=== PATIENT | female | born 1940 | race Caucasian/White ===

== ENCOUNTER → 2017-11-08 08:09 | Outpatient (CLI) | payer MEDICARE, SELFPAY ==
[2017-11-08 08:41] LABS: Hemoglobin A1C 6.1 % (0.0-7.0)
[2017-11-08 09:38] LABS: Alanine Aminotransferase 42 U/L (12-78); Albumin Level 3.9 gm/dL (3.4-5.0); Albumin/Globulin Ratio 1.1 (1.1-1.8); Alkaline Phosphatase 134 U/L (46-116); Anion Gap 7.3 mEq/L (5-15); Aspartate Amino Transferase 36 U/L (15-37); Bilirubin,Total 0.6 mg/dL (0.2-1.0); Blood Urea Nitrogen 9 mg/dL (7-18); Calcium 10.1 mg/dL (8.5-10.1); Carbon Dioxide 32 mmol/L (21.0-32.0); Chloride 108 mmol/L (98-107); Chol/HDL Ratio 3.7 (1-3.5); Cholesterol 181 mg/dL (140-200); Creatinine,Serum 0.69 mg/dL (0.55-1.02); Estimated Glomerular Filt Rate 83 ml/min (>60); GFR (African American) 100 ML/MIN (>60); Globulin 3.6 gm/dl (1.3-3.2); Glucose 124 mg/dL (74-106); HDL Cholesterol 49 mg/dL (29-89); LDL Cholesterol 70 mg/dL (0-130); Potassium 4.3 mmoL/L (3.5-5.1); Sodium 143 mmol/L (136-145); Total Protein,Serum 7.5 gm/dL (6.4-8.2); Triglycerides 309 mg/dL (30-200); VLDL Cholesterol 62 mg/dL (0-40)
== END ==
PROVIDERS: Visit Provider Nurse Practitioner Family
DX: Z00.00 Encounter for general adult medical examination without abnormal findings (principal); E11.9 Type 2 diabetes mellitus without complications; I10 Essential (primary) hypertension; R30.0 Dysuria; E78.5 Hyperlipidemia, unspecified
CPT/HCPCS: 36415; 80053; 80061; 83036; 87086

== ENCOUNTER → 2017-11-25 14:43 | Outpatient (CLI) | payer MEDICARE, SELFPAY ==
[2017-11-25 16:08] LABS: Anion Gap 9.3 mEq/L (5-15); Blood Urea Nitrogen 13 mg/dL (7-18); Calcium 9.6 mg/dL (8.5-10.1); Carbon Dioxide 29 mmol/L (21.0-32.0); Chloride 107 mmol/L (98-107); Creatinine,Serum 0.89 mg/dL (0.55-1.02); Estimated Glomerular Filt Rate 62 ml/min (>60); GFR (African American) 75 ML/MIN (>60); Glucose 98 mg/dL (74-106); Potassium 4.3 mmoL/L (3.5-5.1); Sodium 141 mmol/L (136-145)
== END ==
PROVIDERS: Visit Provider Nurse Practitioner Family
DX: I10 Essential (primary) hypertension (principal)
CPT/HCPCS: 36415; 80048

== ENCOUNTER → 2018-03-03 08:19 | Outpatient (CLI) | payer MEDICARE, SELFPAY ==
[2018-03-03 11:32] LABS: Alanine Aminotransferase 33 U/L (12-78); Albumin Level 3.7 gm/dL (3.4-5.0); Albumin/Globulin Ratio 1.1 (1.1-1.8); Alkaline Phosphatase 108 U/L (46-116); Anion Gap 13.4 mEq/L (5-15); Aspartate Amino Transferase 36 U/L (15-37); Bilirubin,Total 0.4 mg/dL (0.2-1.0); Blood Urea Nitrogen 11 mg/dL (7-18); Calcium 9.7 mg/dL (8.5-10.1); Carbon Dioxide 27 mmol/L (21.0-32.0); Chloride 106 mmol/L (98-107); Chol/HDL Ratio 3.1 (1-3.5); Cholesterol 151 mg/dL (140-200); Creatinine,Serum 0.63 mg/dL (0.55-1.02); Estimated Glomerular Filt Rate 92 ml/min (>60); GFR (African American) 111 ML/MIN (>60); Globulin 3.3 gm/dl (1.3-3.2); Glucose 122 mg/dL (74-106); HDL Cholesterol 49 mg/dL (29-89); LDL Cholesterol 64 mg/dL (0-130); Potassium 4.4 mmoL/L (3.5-5.1); Sodium 142 mmol/L (136-145); Triglycerides 188 mg/dL (30-200); VLDL Cholesterol 38 mg/dL (0-40)
[2018-03-03 11:42] LABS: Hemoglobin A1C 6.3 % (0.0-7.0)
== END ==
PROVIDERS: Visit Provider Nurse Practitioner Family
DX: Z00.00 Encounter for general adult medical examination without abnormal findings (principal); E11.9 Type 2 diabetes mellitus without complications; E78.5 Hyperlipidemia, unspecified
CPT/HCPCS: 36415; 80053; 80061; 83036

== ENCOUNTER → 2018-09-22 07:36 | Outpatient (CLI) | payer MEDICARE, SELFPAY ==
[2018-09-22 08:50] LABS: Alanine Aminotransferase 36 U/L (12-78); Albumin Level 3.5 gm/dL (3.4-5.0); Albumin/Globulin Ratio 1.1 (1.1-1.8); Alkaline Phosphatase 94 U/L (46-116); Anion Gap 11.2 mEq/L (5-15); Aspartate Amino Transferase 32 U/L (15-37); Bilirubin,Total 0.5 mg/dL (0.2-1.0); Blood Urea Nitrogen 12 mg/dL (7-18); Calcium 10.3 mg/dL (8.5-10.1); Carbon Dioxide 29 mmol/L (21.0-32.0); Chloride 106 mmol/L (98-107); Chol/HDL Ratio 3.2 (1-3.5); Cholesterol 177 mg/dL (140-200); Creatinine,Serum 0.78 mg/dL (0.55-1.02); Estimated Glomerular Filt Rate 72 ml/min (>60); GFR (African American) 87 ML/MIN (>60); Globulin 3.2 gm/dl (1.3-3.2); Glucose 126 mg/dL (74-106); HDL Cholesterol 55 mg/dL (29-89); LDL Cholesterol 73 mg/dL (0-130); Potassium 4.2 mmoL/L (3.5-5.1); Sodium 142 mmol/L (136-145); Total Protein,Serum 6.7 gm/dL (6.4-8.2); Triglycerides 243 mg/dL (30-200); VLDL Cholesterol 49 mg/dL (0-40)
[2018-09-22 10:22] LABS: Hemoglobin A1C 6.6 % (0.0-7.0)
== END ==
PROVIDERS: Visit Provider Nurse Practitioner Family
DX: E11.9 Type 2 diabetes mellitus without complications (principal); E78.5 Hyperlipidemia, unspecified; Z00.00 Encounter for general adult medical examination without abnormal findings; R25.2 Cramp and spasm
CPT/HCPCS: 36415; 80053; 80061; 83036; 83735

== ENCOUNTER → 2018-12-29 14:47 | Outpatient (CLI) | payer MEDICARE, SELFPAY ==
--- NOTE | 2018-12-29 14:53 | XR_ITS ---
PROCEDURE: XR KNEE LT 3V CLINICAL INDICATION: LT KNEE PAIN Left knee pain following injury COMPARISON: No exams were available for comparison FINDINGS: No fracture or dislocation. No lytic or blastic change. There is normal mineralization. There are mild osteoarthritic changes of the medial compartment and patellofemoral joint Other findings:None. IMPRESSION: No acute fracture, mild osteoarthritis Dictated by: Isak Bañuelos MD 12/29/2018 16:31 Electronically signed by Isak Bañuelos MD in [place] 12/29/2018 16:31
== END ==
PROVIDERS: PCP Nurse Practitioner Family; Visit Provider Internal Medicine Adolescent Medicine
DX: M25.562 Pain in left knee (principal)
CPT/HCPCS: 73562

== ENCOUNTER → 2019-02-15 11:13 | Outpatient (CLI) | payer MEDICARE, SELFPAY ==
[2019-02-15 11:43] LABS: Alanine Aminotransferase 71 U/L (12-78); Albumin Level 3.9 gm/dL (3.4-5.0); Albumin/Globulin Ratio 1.3 (1.1-1.8); Alkaline Phosphatase 53 U/L (46-116); Anion Gap 12.2 mEq/L (5-15); Aspartate Amino Transferase 4 U/L (15-37); Bilirubin,Total 0.6 mg/dL (0.2-1.0); Blood Urea Nitrogen 9 mg/dL (7-18); Carbon Dioxide 29 mmol/L (21.0-32.0); Chloride 104 mmol/L (98-107); Chol/HDL Ratio 3.4 (1-3.5); Cholesterol 164 mg/dL (140-200); Creatinine,Serum 0.75 mg/dL (0.55-1.02); Estimated Glomerular Filt Rate 75 ml/min (>60); GFR (African American) 91 ML/MIN (>60); Globulin 2.9 gm/dl (1.3-3.2); Glucose 136 mg/dL (74-106); HDL Cholesterol 48 mg/dL (29-89); LDL Cholesterol 77 mg/dL (0-130); Potassium 4.2 mmoL/L (3.5-5.1); Sodium 141 mmol/L (136-145); Total Protein,Serum 6.8 gm/dL (6.4-8.2); Triglycerides 194 mg/dL (30-200); VLDL Cholesterol 39 mg/dL (0-40)
[2019-02-15 12:43] LABS: Hemoglobin A1C 6.6 % (0.0-7.0)
== END ==
PROVIDERS: Visit Provider Nurse Practitioner Family
DX: E11.9 Type 2 diabetes mellitus without complications (principal); E78.5 Hyperlipidemia, unspecified; Z00.00 Encounter for general adult medical examination without abnormal findings
CPT/HCPCS: 36415; 80053; 80061; 83036

== ENCOUNTER → 2019-06-06 10:57 | Outpatient (CLI) | payer MEDICARE, SELFPAY ==
[2019-06-06 12:03] LABS: Hemoglobin A1C 7.2 % (0.0-7.0)
[2019-06-06 14:36] LABS: Alanine Aminotransferase 57 U/L (9-52); Albumin Level 3.5 g/dL (3.4-5.0); Alkaline Phosphatase 111 U/L (46-116); Anion Gap 14.7 mEq/L (5-15); Aspartate Amino Transferase 82 U/L (15-37); Bilirubin,Total 0.5 mg/dL (0.2-1.0); Blood Urea Nitrogen 10 mg/dL (7-18); Calcium 9.8 mg/dL (8.5-10.1); Carbon Dioxide 27 mmol/L (21.0-32.0); Chloride 107 mmol/L (98-107); Creatinine,Serum 0.67 mg/dL (0.55-1.02); Estimated Glomerular Filt Rate 85 ml/min (>60); GFR (African American) 103 ML/MIN (>60); Globulin 3.4 gm/dl (1.3-3.2); Glucose 139 mg/dL (74-106); Potassium 4.7 mmoL/L (3.5-5.1); Sodium 144 mmol/L (137-145); Total Protein,Serum 6.9 g/dL (6.4-8.2)
[2019-06-06 20:54] LABS: Chol/HDL Ratio 3.5 (1-3.5); Cholesterol 167 mg/dL (140-200); HDL Cholesterol 48 mg/dL (29-89); LDL Cholesterol 83 mg/dL (0-130); Triglycerides 178 mg/dL (30-200); VLDL Cholesterol 36 mg/dL (0-40)
== END ==
PROVIDERS: Visit Provider Nurse Practitioner Family
DX: Z00.00 Encounter for general adult medical examination without abnormal findings (principal); E78.5 Hyperlipidemia, unspecified; E11.9 Type 2 diabetes mellitus without complications
CPT/HCPCS: 36415; 80053; 80061; 83036

== ENCOUNTER → 2019-09-05 10:34 | Outpatient (CLI) | payer MEDICARE, SELFPAY ==
[2019-09-05 12:14] LABS: Alanine Aminotransferase 55 U/L (12-78); Albumin Level 4.3 g/dl (3.5-5.0); Albumin/Globulin Ratio 1.4 (1.1-1.8); Alkaline Phosphatase 129 U/L (38-126); Anion Gap 8.5 mEq/L (5-15); Aspartate Amino Transferase 110 U/L (14-36); Bilirubin,Total 0.5 mg/dl (0.2-1.3); Blood Urea Nitrogen 9 mg/dl (7-17); Calcium 10.7 mg/dl (8.4-10.2); Carbon Dioxide 29 mmol/L (22.0-30.0); Chloride 104 mmol/L (98-107); Chol/HDL Ratio 2.8 (1-3.5); Cholesterol 144 mg/dl (140-200); Estimated Glomerular Filt Rate 97 ml/min (>60); GFR (African American) 117 ML/MIN (>60); Glucose 154 mg/dl (74-100); HDL Cholesterol 52 mg/dl (40-60); Potassium 4.5 mmoL/L (3.5-5.1); Sodium 137 mmol/L (136-145); Total Protein,Serum 7.3 g/dl (6.3-8.2); Triglycerides 217 mg/dl (30-150); VLDL Cholesterol 43 mg/dL (0-40)
[2019-09-05 12:25] LABS: Direct LDL Cholesterol 85.79 mg/dL (100-129)
== END ==
PROVIDERS: Visit Provider Nurse Practitioner Family
DX: E78.2 Mixed hyperlipidemia (principal); I10 Essential (primary) hypertension; F41.8 Other specified anxiety disorders; E11.9 Type 2 diabetes mellitus without complications
CPT/HCPCS: 36415; 80053; 80061; 83036

== ENCOUNTER → 2019-09-13 07:47 | Outpatient (CLI) | payer MEDICARE, SELFPAY ==
--- NOTE | 2019-09-13 07:52 | US_ITS ---
PROCEDURE: US LIVER CLINICAL INDICATION: ELEVATED LIVER ENZYMES COMPARISON: No exams were available for comparison FINDINGS: PANCREAS: Unremarkable. No obvious mass or abnormal fluid collection. No ductal dilatation LIVER: No focal liver lesions demonstrated. Homogeneous echogenicity. No intrahepatic biliary ductal dilatation evident. There is appropriate direction of blood flow within a non dilated portal vein. There is some mild fatty liver infiltration RIGHT KIDNEY: Unremarkable. Normal size and echogenicity. No hydronephrosis GALLBLADDER: Prior cholecystectomy. Common bile duct at mm. IMPRESSION: Prior cholecystectomy with mild fatty liver otherwise negative right upper quadrant ultrasound. Dictated by: Isak Bañuelos MD 09/13/2019 11:39 Electronically signed by Isak Bañuelos MD in [place] 09/13/2019 11:39
== END ==
PROVIDERS: PCP Nurse Practitioner Family; Visit Provider Nurse Practitioner Family
DX: R74.8 Abnormal levels of other serum enzymes (principal)
CPT/HCPCS: 76705

== ENCOUNTER → 2019-10-03 08:41 | Outpatient (CLI) | payer MEDICARE, SELFPAY ==
[2019-10-03 09:56] LABS: Chloride 103 mmol/L (98-107); Potassium 3.9 mmoL/L (3.5-5.1); Sodium 140 mmol/L (136-145)
[2019-10-03 09:59] LABS: Alanine Aminotransferase 46 U/L (12-78); Albumin Level 3.9 g/dl (3.5-5.0); Albumin/Globulin Ratio 1.3 (1.1-1.8); Alkaline Phosphatase 128 U/L (38-126); Anion Gap 11.9 mEq/L (5-15); Aspartate Amino Transferase 102 U/L (14-36); Bilirubin,Total 0.7 mg/dl (0.2-1.3); Blood Urea Nitrogen 9 mg/dl (7-17); Calcium 9.9 mg/dl (8.4-10.2); Carbon Dioxide 29 mmol/L (22.0-30.0); Estimated Glomerular Filt Rate 97 ml/min (>60); GFR (African American) 117 ML/MIN (>60); Globulin 2.9 g/dL (1.3-3.2); Glucose 175 mg/dl (74-100); Total Protein,Serum 6.8 g/dl (6.3-8.2)
[2019-10-04 05:12] LABS: Hep A Ab, IgM Negative (Negative); Hepatitis B Core Antibody IgM Negative (Negative); Hepatitis B Surface Antigen Negative (Negative)
[2019-10-04 09:41] LABS: Hepatitis C Antibody <0.1 s/co ratio (0.0-0.9)
== END ==
PROVIDERS: Visit Provider Internal Medicine Adolescent Medicine
DX: R74.8 Abnormal levels of other serum enzymes (principal); E83.52 Hypercalcemia; K75.89 Other specified inflammatory liver diseases
CPT/HCPCS: 36415; 80053; 80074

== ENCOUNTER → 2020-03-06 08:03 | Outpatient (CLI) | payer MEDICARE, SELFPAY ==
[2020-03-06 09:08] LABS: Chloride 102 mmol/L (98-107); Potassium 4.2 mmoL/L (3.5-5.1); Sodium 139 mmol/L (136-145)
[2020-03-06 09:11] LABS: Alanine Aminotransferase 36 U/L (12-78); Albumin Level 4.2 g/dl (3.5-5.0); Albumin/Globulin Ratio 1.4 (1.1-1.8); Alkaline Phosphatase 126 U/L (38-126); Anion Gap 14.2 mEq/L (5-15); Aspartate Amino Transferase 72 U/L (14-36); Bilirubin,Total 0.7 mg/dl (0.2-1.3); Blood Urea Nitrogen 10 mg/dl (7-17); Carbon Dioxide 27 mmol/L (22.0-30.0); Cholesterol 147 mg/dl (140-200); Estimated Glomerular Filt Rate 81 ml/min (>60); GFR (African American) 98 ML/MIN (>60); Globulin 3.1 g/dL (1.3-3.2); Total Protein,Serum 7.3 g/dl (6.3-8.2); Triglycerides 244 mg/dl (30-150); VLDL Cholesterol 49 mg/dL (0-40)
[2020-03-06 09:12] LABS: Calcium 10.4 mg/dl (8.4-10.2); Chol/HDL Ratio 3.3 (1-3.5); Glucose 175 mg/dl (74-100); HDL Cholesterol 45 mg/dl (40-60)
[2020-03-06 09:23] LABS: Direct LDL Cholesterol 72.77 mg/dL (100-129)
[2020-03-06 09:56] LABS: Hemoglobin A1C 7.4 % (4.0-6.0)
== END ==
PROVIDERS: Visit Provider Nurse Practitioner Family
DX: E11.9 Type 2 diabetes mellitus without complications (principal); E78.5 Hyperlipidemia, unspecified; I10 Essential (primary) hypertension
CPT/HCPCS: 36415; 80053; 80061; 83036

== ENCOUNTER → 2020-06-19 09:11 | Outpatient (CLI) | payer MEDICARE, SELFPAY ==
[2020-06-19 09:59] LABS: Hemoglobin A1C 8.2 % (4.0-6.0)
[2020-06-19 10:11] LABS: Chloride 103 mmol/L (98-107); Sodium 140 mmol/L (136-145)
[2020-06-19 10:12] LABS: Potassium 4.5 mmoL/L (3.5-5.1)
[2020-06-19 10:14] LABS: Alanine Aminotransferase 38 U/L (12-78); Albumin Level 4.6 g/dl (3.5-5.0); Albumin/Globulin Ratio 1.3 (1.1-1.8); Alkaline Phosphatase 137 U/L (38-126); Anion Gap 11.5 mEq/L (5-15); Aspartate Amino Transferase 92 U/L (14-36); Bilirubin,Total 0.7 mg/dl (0.2-1.3); Blood Urea Nitrogen 8 mg/dl (7-17); Carbon Dioxide 30 mmol/L (22.0-30.0); Cholesterol 155 mg/dl (140-200); Estimated Glomerular Filt Rate 97 ml/min (>60); GFR (African American) 117 ML/MIN (>60); Globulin 3.6 g/dL (1.3-3.2); Total Protein,Serum 8.2 g/dl (6.3-8.2); Triglycerides 251 mg/dl (30-150); VLDL Cholesterol 50 mg/dL (0-40)
[2020-06-19 10:15] LABS: Calcium 10.7 mg/dl (8.4-10.2); Chol/HDL Ratio 3.4 (1-3.5); Glucose 197 mg/dl (74-100); HDL Cholesterol 46 mg/dl (40-60)
[2020-06-19 10:26] LABS: Direct LDL Cholesterol 66.29 mg/dL (100-129)
== END ==
PROVIDERS: Visit Provider Nurse Practitioner Family
DX: Z00.00 Encounter for general adult medical examination without abnormal findings (principal); E11.9 Type 2 diabetes mellitus without complications; E78.5 Hyperlipidemia, unspecified
CPT/HCPCS: 36415; 80053; 80061; 83036

== ENCOUNTER → 2020-10-29 08:53 | Outpatient (CLI) | payer MEDICARE, SELFPAY ==
[2020-10-29 10:23] LABS: Hemoglobin A1C 6.9 % (4.0-6.0)
[2020-10-29 10:37] LABS: Chloride 107 mmol/L (98-107)
[2020-10-29 10:38] LABS: Potassium 4.1 mmoL/L (3.5-5.1); Sodium 143 mmol/L (136-145)
[2020-10-29 10:40] LABS: Alanine Aminotransferase 29 U/L (12-78); Albumin Level 4.3 g/dl (3.5-5.0); Albumin/Globulin Ratio 1.4 (1.1-1.8); Alkaline Phosphatase 124 U/L (38-126); Anion Gap 14.1 mEq/L (5-15); Aspartate Amino Transferase 65 U/L (14-36); Bilirubin,Total 0.6 mg/dl (0.2-1.3); Blood Urea Nitrogen 7 mg/dl (7-17); Carbon Dioxide 26 mmol/L (22.0-30.0); Cholesterol 139 mg/dl (140-200); Estimated Glomerular Filt Rate 96 ml/min (>60); GFR (African American) 117 ML/MIN (>60); Globulin 3.1 g/dL (1.3-3.2); Glucose 148 mg/dl (74-100); Total Protein,Serum 7.4 g/dl (6.3-8.2); Triglycerides 202 mg/dl (30-150); VLDL Cholesterol 40 mg/dL (0-40)
[2020-10-29 10:41] LABS: Chol/HDL Ratio 3.1 (1-3.5); HDL Cholesterol 45 mg/dl (40-60)
[2020-10-29 10:52] LABS: Direct LDL Cholesterol 63.57 mg/dL (100-129)
== END ==
PROVIDERS: Visit Provider Nurse Practitioner Family
DX: Z00.00 Encounter for general adult medical examination without abnormal findings (principal); E78.5 Hyperlipidemia, unspecified; E11.9 Type 2 diabetes mellitus without complications; Z79.84 Long term (current) use of oral hypoglycemic drugs
CPT/HCPCS: 36415; 80053; 80061; 83036

== ENCOUNTER → 2021-01-23 10:00 | Outpatient (CLI) | payer MEDICARE, SELFPAY ==
--- NOTE | 2021-01-23 10:10 | XR_ITS ---
PROCEDURE: XR CHEST 2V CLINICAL HISTORY: SOB COMPARISON: No exams were available for comparison FINDINGS: Borderline cardiomegaly without failure. Lungs are clear. Mild kyphosis of the thoracic spine with degenerative changes. IMPRESSION: No acute findings. Dictated by: Isak Bañuelos MD 01/23/2021 12:30 Isak Bañuelos MD in [place] 01/23/2021 12:30
[2021-01-23 11:28] LABS: Hemoglobin A1C 6.8 % (4.0-6.0)
[2021-01-23 11:29] LABS: Chloride 104 mmol/L (98-107)
[2021-01-23 11:30] LABS: Potassium 4.4 mmoL/L (3.5-5.1); Sodium 143 mmol/L (136-145)
[2021-01-23 11:32] LABS: Alanine Aminotransferase 28 U/L (12-78); Alkaline Phosphatase 118 U/L (38-126); Anion Gap 15.4 mEq/L (5-15); Aspartate Amino Transferase 62 U/L (14-36); Bilirubin,Total 0.4 mg/dl (0.2-1.3); Blood Urea Nitrogen 9 mg/dl (7-17); Carbon Dioxide 28 mmol/L (22.0-30.0); Cholesterol 138 mg/dl (140-200); Estimated Glomerular Filt Rate 119 ml/min (>60); GFR (African American) 144 ML/MIN (>60); Triglycerides 200 mg/dl (30-150); VLDL Cholesterol 40 mg/dL (0-40)
[2021-01-23 11:33] LABS: Albumin Level 4.4 g/dl (3.5-5.0); Albumin/Globulin Ratio 1.3 (1.1-1.8); Calcium 10.5 mg/dl (8.4-10.2); Chol/HDL Ratio 3.1 (1-3.5); Globulin 3.5 g/dL (1.3-3.2); Glucose 153 mg/dl (74-100); HDL Cholesterol 44 mg/dl (40-60); Magnesium 1.7 mg/dl (1.6-2.3); Total Protein,Serum 7.9 g/dl (6.3-8.2)
== END ==
PROVIDERS: PCP Internal Medicine Adolescent Medicine; Visit Provider Nurse Practitioner Family
DX: R06.02 Shortness of breath (principal); Z00.00 Encounter for general adult medical examination without abnormal findings; E11.9 Type 2 diabetes mellitus without complications; E78.5 Hyperlipidemia, unspecified; G25.81 Restless legs syndrome
CPT/HCPCS: 36415; 71046; 80053; 80061; 83036; 83735

== ENCOUNTER → 2021-08-04 09:22 | Outpatient (CLI) | payer MEDICARE, SELFPAY ==
[2021-08-04 10:19] LABS: Chloride 106 mmol/L (98-107); Sodium 142 mmol/L (136-145)
[2021-08-04 10:20] LABS: Potassium 4.6 mmoL/L (3.5-5.1)
[2021-08-04 10:21] LABS: Hemoglobin A1C 6.7 % (4.0-6.0)
[2021-08-04 10:22] LABS: Alanine Aminotransferase 23 U/L (12-78); Albumin Level 4.1 g/dl (3.5-5.0); Albumin/Globulin Ratio 1.5 (1.1-1.8); Alkaline Phosphatase 102 U/L (38-126); Anion Gap 10.6 mEq/L (5-15); Aspartate Amino Transferase 49 U/L (14-36); Bilirubin,Total 0.6 mg/dl (0.2-1.3); Blood Urea Nitrogen 11 mg/dl (7-17); Carbon Dioxide 30 mmol/L (22.0-30.0); Cholesterol 139 mg/dl (140-200); Estimated Glomerular Filt Rate 81 ml/min (>60); GFR (African American) 98 ML/MIN (>60); Globulin 2.8 g/dL (1.3-3.2); Total Protein,Serum 6.9 g/dl (6.3-8.2); Triglycerides 175 mg/dl (30-150); VLDL Cholesterol 35 mg/dL (0-40)
[2021-08-04 10:23] LABS: Calcium 9.6 mg/dl (8.4-10.2); Chol/HDL Ratio 2.6 (1-3.5); Glucose 124 mg/dl (74-100); HDL Cholesterol 53 mg/dl (40-60)
[2021-08-04 10:34] LABS: Direct LDL Cholesterol 64.48 mg/dL (100-129)
== END ==
PROVIDERS: Visit Provider Nurse Practitioner Family
DX: Z00.00 Encounter for general adult medical examination without abnormal findings (principal); E11.9 Type 2 diabetes mellitus without complications; E78.5 Hyperlipidemia, unspecified
CPT/HCPCS: 36415; 80053; 80061; 83036

== ENCOUNTER → 2022-08-05 11:13 | Outpatient (CLI) | payer MEDICARE, SELFPAY ==
[2022-08-05 11:20] LABS: Microscopic, Urine URINE MICROSCOPIC (MICROSCOPIC)
[2022-08-05 11:48] LABS: Appearance,Urine SL CLOUDY (Clear); Bilirubin,Urine Negative (Negative); Blood, Urine TRACE-I (Negative); Color,Urine YELLOW (Yellow); Glucose,Urine (UA) Negative (Negative); Ketones,Urine Negative (Negative); Leukocyte Esterase,Urine 1+ (Negative); Nitrate,Urine POSITIVE (Negative); Protein,Urine Negative (Negative); Urobilinogen,Urine 0.2 EU/dl (0.2)
[2022-08-05 11:54] LABS: Basophils # 0.1 K/mm3 (0-0.2); Basophils % 0.8 % (0.1-2.0); Eosinophils # 0.1 K/mm3 (0.0-0.4); Eosinophils % 1.4 % (0.1-12.0); Hematocrit 42.7 % (37.0-47.0); Hemoglobin 13.2 g/dL (12.2-16.2); Lymphocytes # 2.1 K/mm3 (0.7-4.5); Lymphocytes % 31.1 % (10-50); Mean Corpuscular HGB Conc 30.9 g/dL (31.8-35.4); Mean Corpuscular Hemoglobin 28.2 pg (27.0-31.2); Mean Corpuscular Volume 91.2 fl (81-99); Monocytes # 0.3 K/mm3 (0.1-1.0); Neutrophils # 4.1 K/mm3 (1.8-7.8); Neutrophils % 61.7 % (37.0-80.0); Platelet Count 150 K/mm3 (142-424); Red Blood Count 4.68 M/mm3 (4.20-5.40); Red Cell Distribution Width 14.6 % (11.5-17.5); White Blood Count 6.6 K/mm3 (4.8-10.8)
[2022-08-05 11:55] LABS: Creatinine,Urine Random 98 mg/dL (Not Estab.)
[2022-08-05 12:00] LABS: Bacteria,Urine 4+ /lpf; Squamous Epithelial Cell,Urine Occasional #/hpf (0-5)
[2022-08-05 12:44] LABS: Albumin Level 4.6 g/dl (3.5-5.0); Anion Gap 5.3 mEq/L (5-15); Blood Urea Nitrogen 8 mg/dl (7-17); Calcium 10.2 mg/dl (8.4-10.2); Carbon Dioxide 32 mmol/L (22.0-30.0); Chloride 103 mmol/L (98-107); Estimated Glomerular Filt Rate 96 ml/min (>60); GFR (African American) 116 ML/MIN (>60); Glucose 123 mg/dl (74-100); Potassium 4.3 mmoL/L (3.5-5.1); Sodium 136 mmol/L (136-145)
[2022-08-05 12:56] LABS: Intact Parathyroid Hormone 191.2 pg/mL (7.5-53.5)
[2022-08-05 13:03] LABS: 25-OH Vitamin D, Total 15.6 ng/mL (30-100)
== END ==
PROVIDERS: PCP Nurse Practitioner Family; Visit Provider Nurse Practitioner
DX: E83.52 Hypercalcemia (principal); B96.29 Other Escherichia coli [E. coli] as the cause of diseases classified elsewhere; R82.90 Unspecified abnormal findings in urine
CPT/HCPCS: 36415; 80069; 81001; 82306; 82570; 83970; 84155; 85025; 87086; 87088; 87186

== ENCOUNTER → 2022-08-10 10:57 | Outpatient (POV) | payer MEDICARE, SELFPAY | PROVIDERS: Visit Provider Nurse Practitioner | DX: Z00.00 Encounter for general adult medical examination without abnormal findings (principal) ==

== ENCOUNTER → 2022-08-10 11:21 | Outpatient (CLI) | payer MEDICARE, SELFPAY ==
[2022-08-16 19:25] LABS: 1,25 Dihydroxy Vitamin D 68 pg/mL (.); 1,25-Dihydroxy, Vitamin D-2 10 pg/mL (.); 1,25-Dihydroxy, Vitamin D-3 58 pg/mL (.)
[2022-08-26 22:53] LABS: PTH Related Peptide < 2.0
== END ==
PROVIDERS: PCP Nurse Practitioner Family; Visit Provider Nurse Practitioner
DX: E21.3 Hyperparathyroidism, unspecified (principal)
CPT/HCPCS: 36415; 82397; 82652

== ENCOUNTER → 2022-09-04 09:42 | Outpatient (CLI) | payer MEDICARE, SELFPAY ==
--- NOTE | 2022-09-04 09:48 | NM_ITS ---
FINAL REPORT CLINICAL HISTORY: HYPERPARATHYROIDISM 10:00 am 20.9 mci tc sestamibi injected into lt ant FINDINGS: 20.9 mci Technetium Sestamibi was administered. Planar imaging was performed early and two-hour delayed of the neck and upper thorax. Early imaging shows physiologic uptake within the upper neck involving the salivary glands and lower neck involving the thyroid gland. On delayed imaging there is no abnormal retained activity in the lower neck or mediastinum to localize parathyroid adenoma. IMPRESSION: No scintigraphic evidence of parathyroid adenoma. Reviewed, Interpreted and Dictated by Henok Rivas MD Transcribed by Corrine Ortega Authenticated and [facility]
== END ==
PROVIDERS: PCP Nurse Practitioner Family; Visit Provider Nurse Practitioner
DX: E83.52 Hypercalcemia
CPT/HCPCS: 78070; A9500

== ENCOUNTER → 2023-03-22 10:39 | Outpatient (CLI) | payer MEDICARE, SELFPAY ==
[2023-03-22 11:01] LABS: Microscopic, Urine URINE MICROSCOPIC (MICROSCOPIC)
[2023-03-22 11:31] LABS: Appearance,Urine CLEAR (Clear); Bilirubin,Urine Negative (Negative); Blood, Urine Negative (Negative); Color,Urine YELLOW (Yellow); Glucose,Urine (UA) Negative (Negative); Ketones,Urine Negative (Negative); Leukocyte Esterase,Urine 1+ (Negative); Nitrate,Urine POSITIVE (Negative); Protein,Urine Negative (Negative); Specific Gravity, Urine 1.025 (1.005-1.030); Urobilinogen,Urine 0.2 EU/dl (0.2)
[2023-03-22 11:46] LABS: Bacteria,Urine 2+ /lpf; Squamous Epithelial Cell,Urine Occasional #/hpf (0-5)
[2023-03-22 12:20] LABS: Blood Urea Nitrogen 8 mg/dl (7-17); Carbon Dioxide 29 mmol/L (22.0-30.0); Estimated Glomerular Filt Rate 80 ml/min (>60); GFR (African American) 97 ML/MIN (>60); Phosphorous 2.9 mg/dl (2.5-4.5)
[2023-03-22 12:21] LABS: Albumin Level 4.4 g/dl (3.5-5.0); Calcium 9.6 mg/dl (8.4-10.2); Glucose 144 mg/dl (74-100); Potassium 4.1 mmoL/L (3.5-5.1); Sodium 136 mmol/L (136-145)
[2023-03-22 12:30] LABS: Intact Parathyroid Hormone 175.2 pg/mL (7.5-53.5)
[2023-03-22 12:31] LABS: 25-OH Vitamin D, Total 17.7 ng/mL (30-100)
[2023-03-22 12:46] LABS: Anion Gap 9.1 mEq/L (5-15); Chloride 102 mmol/L (98-107)
[2023-03-22 13:24] LABS: Creatinine,Urine Random 81 mg/dL (Not Estab.)
[2023-03-23 10:14] LABS: Calcium, Urine 10.6 mg/dL (Not Estab.)
[2023-03-23 14:13] LABS: Calcium, Ionized 5.2 mg/dL (4.5-5.6)
[2023-03-28 00:07] LABS: 1,25 Dihydroxy Vitamin D 79 pg/mL (.); 1,25-Dihydroxy, Vitamin D-2 <10 pg/mL (.); 1,25-Dihydroxy, Vitamin D-3 76 pg/mL (.)
[2023-03-28 16:37] LABS: PTH Related Peptide < 2.0
== END ==
PROVIDERS: PCP Nurse Practitioner Family; Visit Provider Nurse Practitioner
DX: E83.52 Hypercalcemia (principal); B96.29 Other Escherichia coli [E. coli] as the cause of diseases classified elsewhere; R82.90 Unspecified abnormal findings in urine
CPT/HCPCS: 80069; 81001; 82306; 82330; 82340; 82397; 82570; 82652; 83970; 84155; 87086

== ENCOUNTER 2023-06-24 09:21 | Outpatient (CLI) | payer MEDICARE, SELFPAY ==
--- NOTE | 2023-06-24 09:31 | XR_ITS ---
FINAL REPORT TECHNIQUE: Bone densitometry calculations of the lumbar spine and left hip were obtained. CLINICAL HISTORY: POST MENOPAUSAL ,hyperparathyroidism COMPARISON: None FINDINGS: Using L1-4, the bone mineral density of the spine is 0.8 g/cm2, corresponding to T-score of -2.2 and a Z score of 0.5. This is within the range of osteopenia. Using the left hip, the bone mineral density of the femoral neck is 0.53 g/cm2, corresponding to a T-score of -2.9 and a Z-score of -0.5. This is within the range of osteoporosis. NOTE: T-score: Standard deviation compared with peak bone mass of young adult mean. *Following the recommendations of the International Society of Bone densitometry, classification of hip BMD is based on the lower of two T-scores; total hip or femoral neck. IMPRESSION: 1. Bone mineral density of the lumbar spine within the range of osteopenia. 2. Bone mineral density of the left femoral neck within the range of osteoporosis. Reviewed, Interpreted and Dictated by Tabby Restrepo MD Transcribed by Billie Barreto Authenticated and . [facility]
[2023-06-24 10:59] LABS: Albumin Level 3.9 g/dl (3.5-5.0); Anion Gap 8.4 mEq/L (5-15); Blood Urea Nitrogen 9 mg/dl (7-17); Calcium 10.1 mg/dl (8.4-10.2); Carbon Dioxide 29 mmol/L (22.0-30.0); Chloride 106 mmol/L (98-107); Estimated Glomerular Filt Rate 80 ml/min (>60); GFR (African American) 97 ML/MIN (>60); Glucose 152 mg/dl (74-100); Phosphorous 2.9 mg/dl (2.5-4.5); Potassium 4.4 mmoL/L (3.5-5.1); Sodium 139 mmol/L (136-145)
[2023-06-24 11:11] LABS: Intact Parathyroid Hormone 149.7 pg/mL (7.5-53.5)
[2023-06-25 09:25] LABS: Calcium, Urine 13.8 mg/dL (Not Estab.)
[2023-06-25 15:30] LABS: Calcium, Ionized 5.4 mg/dL (4.5-5.6)
== END 2023-06-24 23:59 ==
PROVIDERS: PCP Nurse Practitioner Family; Visit Provider Nurse Practitioner
DX: Z13.820 Encounter for screening for osteoporosis; Z78.0 Asymptomatic menopausal state; E21.3 Hyperparathyroidism, unspecified; E55.9 Vitamin D deficiency, unspecified
CPT/HCPCS: 36415; 77080; 80069; 82330; 82340; 83970

== ENCOUNTER 2023-08-06 09:36 | Outpatient (CLI) | payer MEDICARE, SELFPAY ==
[2023-08-06 10:28] LABS: Albumin Level 4.2 g/dl (3.5-5.0); Anion Gap 10.9 mEq/L (5-15); Blood Urea Nitrogen 13 mg/dl (7-17); Calcium 11.1 mg/dl (8.4-10.2); Carbon Dioxide 27 mmol/L (22.0-30.0); Chloride 106 mmol/L (98-107); Estimated Glomerular Filt Rate 69 ml/min (>60); GFR (African American) 83 ML/MIN (>60); Glucose 124 mg/dl (74-100); Phosphorous 3.2 mg/dl (2.5-4.5); Potassium 3.9 mmoL/L (3.5-5.1); Sodium 140 mmol/L (136-145)
[2023-08-06 10:40] LABS: Intact Parathyroid Hormone 124.1 pg/mL (7.5-53.5)
[2023-08-06 12:04] LABS: 25-OH Vitamin D, Total 36.9 ng/mL (30-100)
[2023-08-06 14:34] LABS: Creatinine,Urine Random 147 mg/dL (Not Estab.)
[2023-08-07 10:17] LABS: Calcium, Urine 40.5 mg/dL (Not Estab.)
[2023-08-09 16:12] LABS: Calcium, Ionized 5.6 mg/dL (4.5-5.6)
[2023-08-16 16:12] LABS: 1,25 Dihydroxy Vitamin D 116 pg/mL (.); 1,25-Dihydroxy, Vitamin D-2 88 pg/mL (.); 1,25-Dihydroxy, Vitamin D-3 28 pg/mL (.)
== END 2023-08-06 23:59 | disposition home or self-care (01) ==
LOC: LAB 09:38
PROVIDERS: PCP Nurse Practitioner Family; Visit Provider Nurse Practitioner
DX: E21.3 Hyperparathyroidism, unspecified (principal); E55.9 Vitamin D deficiency, unspecified
CPT/HCPCS: 36415; 80069; 82306; 82330; 82340; 82570; 82652; 83970

== ENCOUNTER 2023-08-10 16:26 | Outpatient (POV) | payer MEDICARE, SELFPAY | END 2023-08-10 23:59 | disposition home or self-care (01) | LOC: SC 16:26 | PROVIDERS: Visit Provider Nurse Practitioner | DX: Z00.00 Encounter for general adult medical examination without abnormal findings (principal) ==

== ENCOUNTER 2023-10-01 09:53 | Outpatient (CLI) | payer MEDICARE, SELFPAY ==
[2023-10-01 10:01] VITALS: BMI 30.7
[2023-10-01 10:20] VITALS: BP 131/75; PULSE 70; RESP 18; TEMP 36.8; O2SAT 96
[2023-10-01] MEDS: DENOSUMAB 60 MG/ML SYRINGE SQ (10:20)
[2023-10-01 11:00] LABS: Chloride 104 mmol/L (98-107); Sodium 136 mmol/L (136-145)
[2023-10-01 11:01] LABS: Potassium 3.8 mmoL/L (3.5-5.1)
[2023-10-01 11:03] LABS: Alanine Aminotransferase 27 U/L (12-78); Albumin Level 4.2 g/dl (3.5-5.0); Albumin/Globulin Ratio 1.5 (1.1-1.8); Alkaline Phosphatase 71 U/L (38-126); Anion Gap 10.8 mEq/L (5-15); Aspartate Amino Transferase 40 U/L (14-36); Bilirubin,Total 0.3 mg/dl (0.2-1.3); Blood Urea Nitrogen 13 mg/dl (7-17); Calcium 11.2 mg/dl (8.4-10.2); Carbon Dioxide 25 mmol/L (22.0-30.0); Creatinine Clearance Estimated 57 mL/min (50-200); Estimated Glomerular Filt Rate 69 ml/min (>60); GFR (African American) 83 ML/MIN (>60); Globulin 2.8 g/dL (1.3-3.2); Glucose 135 mg/dl (74-100)
[2023-10-01 13:31] LABS: 25-OH Vitamin D, Total 30.5 ng/mL (30-100)
[2023-10-06 14:21] LABS: Tandem-R Ostase 18.5 ug/L (.)
[2023-10-09 10:39] LABS: Serial Monitoring PDF SCANNED IMAGE
== END 2023-10-01 10:45 | disposition home or self-care (01) ==
LOC: INF 09:54
PROVIDERS: PCP Internal Medicine Adolescent Medicine; Visit Provider Nurse Practitioner
DX: M81.0 Age-related osteoporosis without current pathological fracture (principal); Z79.620 Long term (current) use of immunosuppressive biologic
CPT/HCPCS: 36415; 80053; 82306; 84080; 96372; J0897

== ENCOUNTER 2023-10-15 10:25 | Outpatient (CLI) | payer MEDICARE, SELFPAY ==
[2023-10-15 10:30] VITALS: BMI 29.9
[2023-10-15 10:55] LABS: Anion Gap 11.1 mEq/L (5-15); Blood Urea Nitrogen 8 mg/dl (7-17); Calcium 10.4 mg/dl (8.4-10.2); Carbon Dioxide 28 mmol/L (22.0-30.0); Chloride 106 mmol/L (98-107); Creatinine Clearance Estimated 56 mL/min (50-200); Estimated Glomerular Filt Rate 69 ml/min (>60); GFR (African American) 83 ML/MIN (>60); Glucose 135 mg/dl (74-100); Potassium 4.1 mmoL/L (3.5-5.1); Sodium 141 mmol/L (136-145)
[2023-10-15 11:14] LABS: Chloride 107 mmol/L (98-107); Sodium 140 mmol/L (136-145)
[2023-10-15 11:15] LABS: Albumin Level 4.2 g/dl (3.5-5.0); Potassium 4.2 mmoL/L (3.5-5.1)
[2023-10-15 11:17] LABS: Anion Gap 10.2 mEq/L (5-15); Blood Urea Nitrogen 9 mg/dl (7-17); Carbon Dioxide 27 mmol/L (22.0-30.0); Creatinine Clearance Estimated 56 mL/min (50-200); Estimated Glomerular Filt Rate 69 ml/min (>60); GFR (African American) 83 ML/MIN (>60); Phosphorous 2.3 mg/dl (2.5-4.5)
[2023-10-15 11:18] LABS: Calcium 10.4 mg/dl (8.4-10.2); Glucose 133 mg/dl (74-100)
== END 2023-10-15 10:40 | disposition home or self-care (01) ==
LOC: INF 10:28
PROVIDERS: PCP Internal Medicine Adolescent Medicine; Visit Provider Nurse Practitioner
DX: M81.0 Age-related osteoporosis without current pathological fracture (principal)
CPT/HCPCS: 36415; 80048; 80069

== ENCOUNTER 2024-11-02 11:21 | Outpatient (CLI) | payer MEDICARE, SELFPAY ==
--- OUTSIDE RECORDS SUMMARY | 2024-07-29 17:30 | XMS_ITS ---
Author Organization [facility] D [facility] Address [address] [place] [address] Care Team Providers Care Encyclopedia Research Worker Name Role Phone Dominic Boles Primary Care Provider McNees, Coni Unavailable [phone] Dominic Boles Unavailable Unavailable Migration, Provider Unavailable Unavailable Allergies Allergen (clinical drug ingredient) Drug/Non Drug Allergy documented on EMR Reaction Allergy Type Onset Date Status atorvastatin Lipitor muscle pain Drug Allergy Ac tive ezetimibe / simvastatin Vytorin muscle pain Drug Allergy [facility] Encounter Medications Medication SIG (Take, Route, Frequency, Duration) Notes Start Date End Date Status traZODone HCl 50 MG as directed orally a t bedtime; Duration: 90 days Active ACCU-CHEK FRANCO METER *Please review for potential replacement for e-prescription and drug interaction check* 08/12/2016 Active Advil PRN *Please review a nd pick correct strength-formulati [facility]. If intended option is not shown, discontinue and re-order from Quick Search* Active Probiotic 1 TAB PO QD *Please review a nd pick correct strength-formulati [facility]. If intended option is not shown, discontinue and re-order from Quick Search* Active Vitamin D (Ergocalciferol) 1.25 MG (58500 UT) 1 cap(s) orally once a week [...] review and pick correct strength-formulati on from [facility] options. If intended option is not shown, discontinue and re-order from Quick Search* Active Tylenol Extra Strength 500 MG 2 tab(s) orally Q6H prn Active Encounters Encounter Location Date Provider Diagnosis [facility] [address] [place], [place] [address] 07/29/2024 Provider Migration Tooth abscess K04.7 Assessments [...] Appt Details Provider Name:Coni Dave Anil Masha, 12/05/2024 10:00:00 AM, [address] [place] [facility] [address], [address], [place], [address], Progress Notes * SEANRileyOB:1940 ( 84 yo F)Acc No.[id number]:07/29/2024 Patient: Jessica AVILES Provider: Rocío Villafana :1940 A ge:83 Y S ex:Female Date:07/29/2024 Address:[address] [place], [place] [id number] Pcp:Dominic Boles Subjective: * Chief Complaints: * 1 . [facility]. * Medical History: * Medications: T aking Percocet 5-325 MG Tablet 1 tab(s) orally every 6 hours , Taking Prolia 60 MG/ML Solution Prefilled Syringe as directed subcutaneously every 6 months , Taking B- 12 1000 MCG Tablet 1 tab(s) orally once a day , Taking Vitamin D (Ergocalciferol) 1.25 MG (03531 UT) Capsule 1 cap(s) orally once a week , Taking Advil PRN , Notes to Pharmacist: *Please review and pick correct [facility]. If intended option is not shown, discontinue and re-order from Quick Search*, Taking Probiotic 1 TAB PO QD , Notes to Pharmacist: *Please review and pick correct strength-formulation [facility]. If intended option is not [...] Refills 1. * * Electronic signature of Zunilda shelton Migration on 11/02/2024 at 11:27 AM EDT Sign off status: Pending * Provider: Rocío titus Migration Date: 0 07/29/2024 Generated for Lamont padron/Arturo/Siddhartha on: 0 11/02/2024 11:27 AM EDT
--- OUTSIDE RECORDS SUMMARY | 2024-10-05 05:30 | XMS_ITS ---
Author Organization [facility] Address [address] [place] [address] Care Team Providers Care Clinical Biochemical Geneticist Name Role Phone Dominic Boles Primary Care Provider [phone] McNeConi morataya Unavailable [phone] Dominic Boles Unavailable Unavailable Allergies Allergen (clinical drug ingredient) Drug/Non Drug Allergy documented on EMR Reaction Allergy Type Onset Date Status atorvastatin Lipitor muscle pain Drug Allergy Ac tive ezetimibe / simvastatin Vytorin muscle pain Drug Allergy Active REASON FOR VISIT yearly Medications Medication SIG (Take, Route, Frequency, Duration) Notes Start Date End Date Status Sertraline HCl 50 MG Take 1 tablet by mo ut once daily; Duration: 30 days Active Omeprazole 40 MG Take 1 capsule by mo uth once daily orally once a day; Duration: 90 days Active Fenofibrate 54 MG Take 1 tablet by reyna once daily; Duration: 30 Active Magnesium Oxide 400 MG 1 tab(s) orally o nce a day at bedtime; Duration: 90 Active traZODone HCl 50 MG 1-2 tabs orally at b edtime; Duration: 90 days Active Losartan Potassium 50 MG 1 tab(s) orally once a day; Duration: 90 days Active Crestor 10 MG 1 tab(s) orally once a day(at bedtime); Duration: 90 days Active ZyrTEC Allergy 10 MG 1 tab(s) orally onc e a day; Duration: 90 Active metFORMIN HCl ER 500 MG 1 tab(s) orally twice a day; Duration: 90 days Active ACCU-CHEK FRANCO PLUS TEST STRIPS USE TO TEST BLOOD SUGAR ONCE DAILY; Duration: 90 DAYS 07/22/2017 Active SOFTCLIX LANCETS FOR DIABETIC TESTING ONCE DAILY; Duration: 30 DAYS 10/12/2017 Active Vitamin D (Ergocalciferol) 1.25 MG (91224 UT) 1 cap(s) orally once a week Active Advil PRN Active Aspirin 81 MG 1 TAB(S) ORALLY ONCE A DAY; Duration: 30 DAY(S) Active ACCU-CHEK FRANCO METER 08/12/2016 Active Tylenol Extra Strength 500 MG 2 tab(s) orally Q6H prn Acti ve Diflucan 150 MG 1 tablet Orally once , repeat in 3 days; Duration: 3 days 10/05/2024 Active Prolia 60 MG/ML as directed subcutan eously every 6 months Active B-12 1000 MCG 1 tab(s) orally once a day Active Problems Problem Type SNOMED Code ICD Code Onset Dates Problem Status W/U Status Risk Notes Problem Cervicalgia (77856303) Cervicalgia (M54.2) Active confirmed Vital Signs Temperature 98.0 degrees Fahrenheit 10/06/19 25 Heart Rate 88 /min 10/05/2024 Blood pressure systolic 120 mm Hg 10/06/19 25 Blood pressure diastolic 76 mm Hg 025 Height 64.5 in 10/05/2024 Weight 173 lbs 10/05/2024 BMI 29.23 kg/m2 10/05/2024 Encounters Encounter Location Date Provider Diagnosis [facility] YE [address] [facility] [address] [place] [address] 10/05/2024 Coni Mc Hyperlipidemia, unspecified hyperlipidemia type E78.5 ; Encounter for Medicare annual wellness exam Z00.00 ; Type 2 diabetes mellitus without complication, without long-term current use of insulin E11.9 ; Depression with anxiety F41.8 ; Essential (primary) hypertension I10 ; Seasonal allergic rhinitis, unspecified allergic rhinitis trigger J30.2 ; Post-viral cough syndrome R05.8 ; Cervicalgia M54.2 ; Overactive bladder N32.81 ; Psychophysiologic insomnia F51.04 ; Vitamin B12 deficiency E53.8 ; Elevated parathyroid hormone R79.89 ; Vitamin D deficiency E55.9 ; Elevated TSH R79.89 ; Postmenopausal osteoporosis M81.0 ; Encounter for immunization Z23 and Vaginal yeast infection B37.31 Assessments Encounter Date Diagnosis (ICD Code) Assessment Notes Treatment Notes Treatment Clinical Notes Section Notes 10/05/2024 Hyperlipidemia, unspecified hyperlipidemia type (ICD-10 - E78.5) Tolerating statin well. Will check fasting lipid panel and treat as indicated. 10/05/2024 Encounter for Medicare annual wellness exam (ICD-10 - Z00.00) Given patient''s advanced age is not a candidate for typical healthcare screening such as colonoscopy. No recent falls. Up-to-date with vaccinations. Nonsmoker. BMi is above goal 10/05/2024 Type 2 diabetes mellitus without complication, without long-term current use of insulin (ICD-10 - E11.9) Recommend to update eye exam, wear supportive footwear, monitor foot daily for lesions and follow diabetic diet. Will check a1c and treat as indicated 10/05/2024 Depression with anxiety (ICD-10 - F41.8) Increase SSRI. Discussed rationale for pharmacotherapy, and discussed MOA of med. Discussed time course of expected improvements, and discussed side effect profile need for urgent evaluation if agitation or worsening mood occurs. Discussed need for f/u in office. RTC in 4 weeks or sooner prn 10/05/2024 Essential (primary) hypertension (ICD-10 - I10) Blood pressure at goal 10/05/2024 Seasonal allergic rhinitis, unspecified allergic rhinitis trigger (ICD-10 - J30.2) Well controlled 10/05/2024 Post-viral cough syndrome (ICD-10 - R05.8) Reassurance lung exam is normal. Dexamethasone IM. Discussed supportive care and return precautions. Will re-evaluate at FU in 4 weeks 10/05/2024 Cervicalgia (ICD-10 - M54.2) Rest, warm compresses,tylen ol prn, dex IM 10/05/2024 Overactive bladder (ICD-10 - N32.81) At baseline off of Gemtesa 10/05/2024 Psychophysiologic insomnia (ICD-10 - F51.04) At baseline on trazodone, no changes 10/05/2024 Vitamin B12 deficiency (ICD-10 - E53.8) Will check B12/CBC to confirm stabiity 10/05/2024 Elevated parathyroid hormone (ICD-10 - R79.89) Continue vit d replacement. Reschedule FU with nephrology 10/05/2024 Vitamin D deficiency (ICD-10 - E55.9) Will check vit d level and treat as indicated. 10/05/2024 Elevated TSH (ICD-10 - R79.89) Will repeat and treat as indicated. 10/05/2024 Postmenopausal osteoporosis (ICD-10 - M81.0) Cont vit d, prolia injections. 10/05/2024 Encounter for immunization (ICD-10 - Z23) 10/05/2024 Vaginal yeast infection (ICD-10 - B37.31) Keep clean and dry. Diflucan as above Plan Of Treatment Medication Medication Name Sig Start Date Stop Date Notes Sertraline HCl 50 MG Take 1 tablet by [facility] once daily; Duration: 30 days Diflucan 150 MG 1 tablet Orally once , repeat in 3 days; Duration: 3 days 10/05/2024 Treatment Notes Assessment Notes Hyperlipidemia, unspecified hyperlipidemia type Tolerating statin well. Will check fasting lipid panel and treat as indicated. Encounter for Medicare annual wellness e xam Given patient''s advanced age is not a candidate for typical healthcare screening such as colonoscopy. No recent falls. Up-to-date with vaccinations. Nonsmoker. BMi is above goal Type 2 diabetes mellitus wit hout complication, without long-term current use of insulin Recommend to update eye exam, wear supportive footwear, monitor foot daily for lesions and follow diabetic diet. Will check a1c and treat as indicated Depression with anxiety Increase SSRI. D iscussed rationale for pharmacotherapy, and discussed MOA of med. Discussed time course of expected improvements, and discussed side effect profile need for urgent evaluation if agitation or worsening mood occurs. Discussed need for f/u in office. RTC in 4 weeks or sooner prn Essential (primary) hypertension Blood p ressure at goal Seasonal allergic rhinitis, unspecified allergic rhinitis trigger Well controlled Post-viral cough syndrome Reassurance mary ng exam is normal. Dexamethasone IM. Discussed supportive care and return precautions. Will re-evaluate at FU in 4 weeks Cervicalgia Rest, warm compresse s,tylenol prn, dex IM Overactive bladder At baseline off of G emtesa Psychophysiologic insomnia At baseline o n trazodone, no changes Vitamin B12 deficiency Will check B12/CB C to confirm stabiity Elevated parathyroid hormone Continue vi t d replacement. Reschedule FU with nephrology Vitamin D deficiency Will check vit d le allison and treat as indicated. Elevated TSH Will repeat and adrienne t as indicated. Postmenopausal osteoporosis Cont vit d, prolia injections. Vaginal yeast infection Keep clean and d ry. Diflucan as above Next Appt Details Follow Up: 4 Weeks, Reason: Provider Name:Coni Tenzin Paulson, 12/05/2024 10:00:00 AM, [address] [facility] [address], [place], [address], Medications Administered Medication Instructions Date of Administration Dosage Notes Dexamethasone 4mg Injection 10/05/2024 4 mg Progress Notes * Stuart ESTRADAisDOB:1940 ( 84 yo F)Acc No.[id number]:10/05/2024 Progress Notes Patient: Jessica AVILES Provider: Sanjay Mc APRN :1940 A ge:84 Y S ex:Female Date:10/05/2024 Address:[address] [place] [address], [id number] Pcp:Dominic Boles Subjective: * Chief Complaints: * 1 . Yearly. * HPI: D iabetes: FSBS r ford checks. o ral medications w ell tolerated. d iet T hao to follow diet most of the time. f oot lesions d enies. o phthalmology eval , eye exam needed. L ast HbA1C l ess than 7%. A CE inhibitor? A RB. A spirin therapy y es. S tatin therapy y es. E xercise N ever. C omplications N europathy left toes. 84 year old female p resents for routine follow-up on chronic conditions and annual Medicare Wellness Exam. D iabetes- Fingerstick blood sugar well controlled, Checks glucose rarely. On tradjenta and metformin. Tolerating well. Trying to follow diabetic diet. Mild numbness in left 4th and 5th toes and right 5th toes which is at baseline. No foot lesions. Last eye exam was over a year ago. Mood has declined contributes to high stress. Primary caregiver of son who is an alcoholic and suffering from cirrhosis and malnutrition. Multiple hospitalizations this year and he lives with her. Feels overwhelmed most days. I nsomnia well controlled on t razodone. Reports shortness of breath at baseline. No chest pain. Mild LE edema at baseline. Following with Dr. Newman for hypercalcemia/elevated PTH. Parathyroid scan was normal. Cancelled last appointment due to caring for her son.?DEXA scan showed osteoporosis on Prolia injections which is monitoring by nephrology. Hyperparathryoidism improved with vit d replacement. HTN- blood pressure well controlled. GERD well controlled on PPI. HLD- no myalgias. Fell at home a few days ago, no LOC. neck is sore. Getting a little better everyday. No other injuries. C/o cough x 2 weeks. SOA at baseline. No sputum production. No fevers. Aged out on preventation maintenance. Immunizations- Pneumonia, COVID-19 UTD. influenza - takes annually. Arexvy UTD. * ROS: A LLERGY: Reviewed, No Symptoms Reported: Y es. F UNCTIONAL STATUS: ADLS I ndependent for all ADL/IADL. R ESPIRATORY: no C hest congestion. C ough y es. C ARDIOLOGY: no D izziness. n o C hest pain. n o P alpitations. n o L eg edema. S hortness of breath y es, w orse with exertion, at baseline. D ERMATOLOGY: no R sara. E NDOCRINOLOGY: no P olydypsia. n o P olyuria. n o W eight loss. D iabetes y es. E NT: Reviewed, No Symptoms Reported: Y es. F EMALE REPRODUCTIVE: Positive for v ulvovaginal pruritus, discharge. ? G ASTROENTEROLOGY: Reviewed, No Symptoms Reported: Y es. N EUROLOGY: no H eadache. T ingling numbness y es, l eft 4th-5th toes, right 5th toe. n o D izziness. P SYCHOLOGY: Depression y es. H igh stress level y es, a lcoholic son lives with her. S leep disturbances y es. n o S uicidal ideation. A nxiety y es. ? U ROLOGY: Dysuria n o. n o B lood in urine. n o F requent urination. n o U rinary incontinence. * Medical History: H LD, HTN, Osteoporosis. * Surgical History: T ubligation 1971, Gall Bladder Removal 2010, D&C 1961. * Hospitalization/Major Diagno stic Procedure: T ubal ligation 1971, D&C 1961. * Family History: F ather: , Heart Attack, HTN. M other: , HTN, Diabetes. P aternal Grand Father: . P aternal Grand Mother: . M aternal Grand Father: . M aternal Grand Mother: . P aternal uncle: . P aternal aunt: . M aternal uncle: . M aternal aunt: , Diabetic. S iblings: , Heart Attack, Lung cancer. C romy: alive, one son , both sons- diabetesOne son- COPD, HTN, Depression- , liver disease, , heart disease. 1 brother(s) , 1 sister(s) . 3 son(s) - healthy. . * Social History: S moking A re you a:: former smoker , How long has it been since you last smoked?: > 10 years. R ecreational drug use: no. Exercise: no. Home smoke detector use: yes. Caffeine: yes, 1-2 diet soda daily. Living Will: No. Alcohol: no. Sexually active: yes. Travel outside [place]: no. Occupation: retired. * Medications: T aking Prolia 60 MG/ML Solution Prefilled Syringe as directed subcutaneously every 6 months , Taking B-12 1000 MCG Tablet 1 tab(s) orally once a day , Taking Vitamin D (Ergocalciferol) 1.25 MG (93256 UT) Capsule 1 cap(s) orally once a week , Taking Advil PRN , Taking ACCU-CHEK FRANCO METER , Taking Tylenol Extra Strength 500 MG Tablet 2 tab(s) orally Q6H prn , Taking Aspirin 81 MG TABLET 1 TAB(S) ORALLY ONCE A DAY , Taking SOFTCLIX LANCETS FOR DIABETIC TESTING ONCE DAILY , Taking ACCU-CHEK FRANCO PLUS TEST STRIPS USE TO TEST BLOOD SUGAR ONCE DAILY , Taking ZyrTEC Allergy 10 MG Tablet 1 tab(s) orally once a day , Taking metFORMIN HCl ER 500 MG Tablet Extended Release 24 Hour 1 tab(s) orally twice a day , Taking Crestor 10 MG Tablet 1 tab(s) orally once a day(at bedtime) , Taking Magnesium Oxide 400 MG Tablet 1 tab(s) orally once a day at bedtime , Taking Omeprazole 40 MG Capsule Delayed Release Take 1 capsule by mouth once daily orally once a day , Taking Fenofibrate 54 MG Tablet Take 1 tablet by mouth once daily , Taking Sertraline HCl 25 MG Tablet Take 1 tablet by mouth once daily , Taking Losartan Potassium 50 MG Tablet 1 tab(s) orally once a day , Taking traZODone HCl 50 MG Tablet 1-2 tabs orally at bedtime , Discontinued Probiotic 1 TAB PO QD , Notes to Pharmacist: *Please review and pick correct strength-formulation from [employer] options. If intended option is not shown, discontinue and re-order from Quick Search*, Discontinued Gemtesa 75 MG Tablet 1 tab(s) orally once a day , Discontinued Percocet 5-325 MG Tablet 1 tab(s) orally every 6 hours , Discontinued Amoxicillin-Pot Clavulanate 875-125 MG Tablet as directed orally every 12 hours , Medication List reviewed and reconciled with the patient * Allergies: V ytorin: muscle pain, Lipitor: muscle pain. Objective: * Vitals: N urse: be, Pain: 5, Temp: 98.0, RR: 16, HR: 88, BP: 120/76, Ht: 64.5, Wt: 173, BMI:29.23. * Examination: G eneral Examination: General P leasant and Cooperative, NAD on RA,. Chest: n ormal shape and expansion. Heart: R RR, soft murmur, Nl S1S2, No JVD, 2(+) symmetric pulses, No edema,, no carotid bruits,. HEENT: u nremarkable . Lungs: L CTAB, No wheezes, crackles or rhonchi, Good air movement,. Abdomen: S oft, NTND, BSNA. Neurologic Exam: Alert and oriented x 3 Moves All 4 Extremities Equally. Skin: normal, no rash,. Peripheral pulses: n ormal (2+) bilaterally. Extremities: no clubbing, no edema,. neck S upple without Meningeal Signs, No JVD, No Goiter, mild cervical paraspinal muscle tenderness, extends across both traps, pain with rotation to right/left and flexion. Psych N ormal Mood/Affect. diabetic foot exam V isual exam of foot performed: Y es. Assessment: * Assessment: 1. E ncounter for Medicare annual wellness exam - Z00.00 (Primary) 2 . H yperlipidemia, unspecified hyperlipidemia type - E78.5 3 . T ype 2 diabetes mellitus without complication, without long-term current use of insulin - E11.9 4 . D epression with anxiety - F41.8 5 . E ssential (primary) hypertension - I10 ? 6 . S easonal allergic rhinitis, unspecified allergic rhinitis trigger - J30.2 ? 7 . P ost-viral cough syndrome - R05.8 8 . C ervicalgia - M54.2 9. O veractive bladder - N32.81 1 0. P sychophysiologic insomnia - F51.04 1 1. V itamin B12 deficiency - E53.8 1 2. E levated parathyroid hormone - R79.89 1 3. V itamin D deficiency - E55.9 14. E levated TSH - R79.89 1 5. P ostmenopausal osteoporosis - M81.0? 16. E ncounter for immunization - Z23 1 7. V aginal yeast infection - B37.31 Plan: * Treatment: 2. H yperlipidemia, unspecified hyperlipidemia type Notes: Tolerating statin well. Will check fasting lipid panel and treat as indicated. 3. T ype 2 diabetes mellitus without complication, without long-term current use of insulin Notes: Recommend to update eye exam, wear supportive footwear, monitor foot daily for lesions and follow diabetic diet. Will check a1c and treat as indicated 4. D epression with anxiety Increase Sertraline HCl Tablet, 50 MG, Take 1 tablet by mouth once daily, 30 days, 30, Refills 0.? Notes: Increase SSRI. Discussed rationale for pharmacotherapy, and discussed MOA of med. Discussed time course of expected improvements, and discussed side effect profile need for urgent evaluation if agitation or worsening mood occurs. Discussed need for f/u in office. RTC in 4 weeks or sooner prn? 5. E ssential (primary) hypertension Notes: Blood pressure at goal 6. S easonal allergic rhinitis, unspecified allergic rhinitis trigger Notes: Well controlled 7. P ost-viral cough syndrome Notes: Reassurance lung exam is normal. Dexamethasone IM. Discussed supportive care and return precautions. Will re-evaluate at FU in 4 weeks 8. C ervicalgia Notes: Rest, warm compresses,tylenol prn, dex IM 9. O veractive bladder Notes: At baseline off of Gemtesa 10. P sychophysiologic insomnia Notes: At baseline on trazodone, no changes 11. V itamin B12 deficiency Notes: Will check B12/CBC to confirm stabiity 12. E levated parathyroid hormone Notes: Continue vit d replacement. Reschedule FU with nephrology 13. V itamin D deficiency Notes: Will check vit d level and treat as indicated. 14. E levated TSH Notes: Will repeat and treat as indicated. 15. P ostmenopausal osteoporosis Notes: Cont vit d, prolia injections. 16. V aginal yeast infection Start Diflucan Tablet, 150 MG, 1 tablet, Orally, once, repeat in 3 days, 3 days, 2, Refills 0. Notes: Keep clean and dry. Diflucan as above * Therapeutic Injections: Dexamethasone 4mg Injection : 4 mg (Route: Intramuscular) given by MYRANDA Tim on right deltoid * Procedure Codes: J 1100 Dexamethasone Sodium Phosphate 4mg Injection, 29942 THERAPEUTIC ADMINISTRATION, G0439 ANNUAL WELLNESS VST; PPS SUBSQT VST, G8399 PT W/DXA DOCUMENT OR ORDER, G9716 BMI DOC ONL FU PLN NOT CMPL DOC RSN, G8431 POSITIVE SCREENING FOR DEPRESSION W/DOCUMENTED F/U, G9903 Pt scrn tbco id as non user, 1036F TOBACCO NON-USER, G8752 Most recent systolic blood pressure < 140mmhg, G8754 Most recent diastolic blood pressure < 90mmhg, G9744 PATIENT NOT ELIG D/T ACTIVE DX HTN * Follow Up: 4 Weeks * * Sign off status: Completed true * Provider: Sanjay Mc APRN Date: 0 10/05/2024 Generated for Lamont padron/Arturo/Siddhartha on: 0 11/02/2024 11:27 AM EDT History and Physical Notes * HPI (History of Present Illness) Category Sub-Category Detail Notes Category Not es Diabetes FSBS rarely checks 84 year old f james presents for routine follow-up on chronic conditions and annual Medicare Wellness Exam. Diabetes- Fingerstick blood sugar well controlled, Checks glucose rarely. On tradjenta and metformin. Tolerating well. Trying to follow diabetic diet. Mild numbness in left 4th and 5th toes and right 5th toes which is at baseline. No foot lesions. Last eye exam was over a year ago. Mood has declined contributes to high stress. Primary caregiver of son who is an alcoholic and suffering from cirrhosis and malnutrition. Multiple hospitalizations this year and he lives with her. Feels overwhelmed most days. Insomnia well controlled on trazodone. Reports shortness of breath at baseline. No chest pain. Mild LE edema at baseline. Following with Dr. Newman for hypercalcemia/elevated PTH. Parathyroid scan was normal. Cancelled last appointment due to caring for her son. DEXA scan showed osteoporosis on Prolia injections which is monitoring by nephrology. Hyperparathryoidism improved with vit d replacement. HTN- blood pressure well controlled. GERD well controlled on PPI. HLD- no myalgias. Fell at home a few days ago, no LOC. neck is sore. Getting a little better everyday. No other injuries. C/o cough x 2 weeks. SOA at baseline. No sputum production. No fevers. Aged out on preventation maintenance. Immunizations- Pneumonia, COVID-19 UTD. influenza - takes annually. Arexvy UTD oral medications well tolerated diet Tries to follow diet most of the time foot lesions denies ophthalmology eval , eye exam needed Last HbA1C less than 7% TIFFANY inhibitor? ARB Aspirin therapy yes Statin therapy yes Exercise Never Complications Neuropathy left toes Examination Category Sub-Category Detail Notes Category Not es General Examination HEENT: unremarkable Heart: RRR, soft murmur, Nl S1S2, No JVD, 2(+) symmetric pulses, No edema,,no carotid bruits, Lungs: LCTAB, No wheezes, c rackles or rhonchi, Good air movement, Abdomen: Soft, NTND, BSNA Extremities: no clubbing, no miranda a, Skin: normal, no rash, Neurologic Exam: Alert and oriented x 3 Moves All 4 Extremities Equally Peripheral pulses: normal (2+) bilatera lly Chest: normal shape and exp ansion neck Supple without Menin geal Signs, No JVD, No Goiter, mild cervical paraspinal muscle tenderness, extends across both traps, pain with rotation to right/left and flexion General Pleasant and Coopera tive, NAD on RA, Psych Normal Mood/Affect diabetic foot exam Visual exam of foot performed :: Yes
--- OUTSIDE RECORDS SUMMARY | 2024-11-02 11:26 | XMS_ITS | Clinical Summary ---
Author Organization [facility] Address [address] [place] [address] Care Team Providers Care Office Service Coordinator Name Role Phone Coni Dave APRN Primary Care Provider [phone] Allergies Active Allergy Reactions Criticality Noted Date Comments Atorvastatin Other - please docum ent in the comment field Low 08/06/2022 Muscle pain Ezetimibe-Simvastatin Other - please doc ument in the comment field Low 08/06/2022 Muscle pain Medications Probiotic Product (PROBIOTIC DAILY PO) Take by mouth. Activ e aspirin 81 MG EC tablet Take 1 tablet (81 mg) by mouth 1 (one) time each day. Active omeprazole (PriLOSEC) [address] capsule Take 1 capsule (40 mg) by mouth 1 (one) time each day. Do not crush or chew. Active losartan (Cozaar) 50 MG tablet Take 1 tablet (50 mg) by mouth 1 (one) time each day. Active rosuvastatin (Crestor) 10 MG tablet Take 1 tablet (10 mg) by mouth 1 (one) time each day. Active magnesium oxide (Mag-Ox) 400 (240 Mg) MG tablet Take 1 tablet (400 mg) by mouth 1 (one) time each day. Active cetirizine (ZyrTEC) 10 MG tablet Take 1 tablet (10 mg) by mouth 1 (one) time each day. Active metFORMIN (Glucophage) 1000 MG tablet Take 1 tablet (1,000 mg) by mouth 2 (two) times a day with meals. Active psyllium (Metamucil) 58.6 % packet Take 1 packet by mouth 1 (one) time each day if needed. Activ e ibuprofen (Advil) 200 MG tablet if needed. Active cyanocobalamin (Vitamin B-12) 1000 MCG/ML injection as directed intramuscularly once a week for 30 days 01/30/20 Active Acetaminophen (Tylenol Dissolve Packs) 500 MG pack 2 tab(s) orally Q6H prn Active Vibegron (Gemtesa) 75 MG tablet 1 (one) time each day at the same time. 02/26/20 Active traZODone (Desyrel) 50 MG tablet 1-2 tabs orally every night for 90 days Active Bacillus Coagulans-Inul in (Probiotic) 1-250 BILLION-MG capsule Take 1 tablet by mouth 1 (one) time each day. Active fenofibrate (Tricor) 54 MG tablet Take 1 tablet (54 mg) by mouth 1 (one) time each day. Active Januvia 100 MG tablet 1 (one) time each day at the same time. 06/02/19 Active cyanocobalamin 1000 MCG tablet Take 1 tablet (1,000 mcg) by mouth Daily. Active sertraline (Zoloft) 25 MG tablet Take 1 tablet (25 mg) by mouth 1 (one) time each day. 01/26/20 Active denosumab (Prolia) 60 MG/ML injection Inject 1 mL (60 mg) under the skin every 6 (six) months. Active Active Problems Problem Noted Date Diagnosed Date Age-related osteoporosis wit hout current pathological fracture 09/10/2023 Immunizations Immunization Administration Dates Next Due Influenza, high-dose, quadrivalent 03/05,01/23/2021,03/05/2020, 019,01/27/2018,02/17/2016 Influenza, injectable, quadrivalent 03/16/2017 Pneumococcal Conjugate PCV 13 09/05/2019 Pneumococcal Polysaccharide PPV23 03/02/2018 Family History Medical History Relation Name Comments Heart attack Father Hyperlipidemia Father Hypertension Father Diabetes Mother Hip fracture Mother Hyperlipidemia Mother Hypertension Mother Relation Name Status Comments Father Mother Social History Tobacco Use Types Packs/Day Years Used Date Smoking Tobacco: Former Cigarettes Passive Smoke Exposure: Past Smokeless Tobacco: Never Tobacco Cessation:Counseling Given: Not Answered Alcohol Use Standard Drinks/Week Comments Never 0 (1 standard drink = 0.6 oz pur e alcohol) PHQ-2 Answer Date Recorded Patient Health Questionnaire-2 Score 0 08/10/2023 Comments No Sex and Gender Information Value Date Recorded Sex Assigned at Not on file Legal Sex Female 8:39 PM EDT Gender Identity Not on file Sexual Orientation Not on file Last Filed Vital Signs Vital Sign Reading Time Taken Comments Blood Pressure 132/80 02/18/2024 10:34 AM EDT Pulse 98 02/18/2024 10:34 AM EDT Temperature - - Respiratory Rate 18 02/18/2024 10:34 AM EDT Oxygen Saturation 93% 02/18/2024 10:34 AM EDT Inhaled Oxygen Concentration - - Weight 81.6 kg (180 lb) 02/18/2024 10:34 AM EDT Height 165.1 cm (5' 5 ) 02/18/2024 10:34 AM EDT Body Mass Index 29.95 02/18/2024 10:34 AM EDT Plan of Treatment Upcoming Encounters Date Type Department Care Team (Late st Contact Info) Description 02/16/2025 8:20 AM EDT Office Visit [facility] [address] [place] [address] Bridgette Escobar, PALAEONTOLOGIST [address] [address] Health Maintenance Due Date Last Done Comments [facility]-Bone Density Scan 1940 [facility]-Medicare Annual Wellness (AWV) 1940 [facility]-Infant/Child/Adol SDOH Screenings 1940 [facility]- SDOH Screenings 09/15/1959 [facility]-Adult SDOH Screenings 09/15/1959 [facility]-DTaP,Tdap,and Td Vaccines (1 - Tdap) 1960 [facility]-Zoster Vaccines (1 of 2) 09/15/1991 [facility]-RSV Vaccine: 60+ Years or (1 - 1-dose 75+ series) 2016 [id number] Vaccine ( - season) 2023 03/09/2023, 01/01/2022, 02/21/2021, Additional history exists [facility]-Depression Screening 08/09/2024 08/10/2023 [facility]-Influenza Vaccine (#1) 12/25/202401/05, 03/05/2022, 01/23/2021, Additional history exists [facility]-Pneumococcal Vaccine: 50+ Years Completed 09/05/2019, 03/02/2018 [facility]-Obesity Intervention Completed 024, 08/10/2023, 03/29/2023, Additional history exists HPV Vaccines Aged Out No longer eligi ble based on patient's age to complete this topic [facility]-HIB Vaccines Aged Out No longer e ligible based on patient's age to complete this topic [facility]-Hepatitis A Vaccines Aged Out No longer eligible based on patient's age to complete this topic [facility]-IPV Vaccines Aged Out No longer e ligible based on patient's age to complete this topic [facility]-Rotavirus Vaccines Aged Out No lo nger eligible based on patient's age to complete this topic Insurance [address] [place] [id number] [place] [address] Care Teams Office Service Coordinator Relationship Specialty Start Date End Date Coni Dave APRN [address] [facility] [place] [address] PCP - General 08/10/22
--- OUTSIDE RECORDS SUMMARY | 2024-11-02 11:26 | XMS_ITS | Encounter Summary ---
Author Organization Healthcare Address [address] [place] [address] Care Team Providers Care Director Cardiology Name Role Phone Kailyn Dave BACKHOE OPERATOR Primary Care Provider [phone] Encounter Details Date Type Department Care Team (Late st Contact Info) Description 09/10/2023 Orders Only [facility] Nephrology [address] [place] [address] Bridgette Escobar APRN [address] [address] Age-related osteoporosis without current pathological fracture (Primary Dx) Social History Tobacco Use Types Packs/Day Years Used Date Smoking Tobacco: Former Cigarettes Passive Smoke Exposure: Past Smokeless Tobacco: Never Alcohol Use Standard Drinks/Week Comments Never 0 (1 standard drink = 0.6 oz pur e alcohol) PHQ-2 Answer Date Recorded Patient Health Questionnaire-2 Score 0 08/10/2023 Comments Unknown Sex and Gender Information Value Date Recorded Sex Assigned at Not on file Legal Sex Female 8:39 PM EDT Gender Identity Not on file Sexual Orientation Not on file documented as of this encounter Miscellaneous Notes * Addendum Note - Kailyn Ledbetter RN - 09/10/2023 1:37 PM EDTAddended by: KAILYN LEDBETTER on: 2024 08:09 PM Modules accepted: Orders * Progress Notes - Bridgette Escobar APRN - 09/10/2023 1:37 PM EDT To be started on Prolia documented in this encounter Plan of Treatment Upcoming Encounters Date Type Department Care Team (Late st Contact Info) Description 02/16/2025 8:20 AM EDT Office Visit [facility] [address] [place] [phone] Bridgette Escobar APRN [address] [address] documented as of this encounter Visit Diagnoses Diagnosis Age-related osteoporosis without current pathological fracture- Primary documented in this encounter Additional Health Concerns Assessment Noted Time A fall risk assessment has been complete d for the patient 08/10/2023 1:13 PM EDT A Body Mass Index follow-up plan has been documented for the patient 08/16/2023 2:17 AM EDT documented as of this encounter Care Teams Director Cardiology Relationship Specialty Start Date End Date Kailyn Dave APRN [address] [place] [address] PCP - General 08/10/22 documented as of this encounter
--- OUTSIDE RECORDS SUMMARY | 2024-11-02 11:27 | XMS_ITS | Patient Health Record ---
Author Organization [facility] Address [address] [place] [address] Care Team Providers Care Tobacco Prizer Name Role Phone Dominic Boles Primary Care Provider McNerafia, Coni Unavailable [phone] Dominic Boles Unavailable Unavailable Migration, Provider Unavailable Unavailable Allergies Allergen (clinical drug ingredient) Drug/Non Drug Allergy documented on EMR Reaction Allergy Type Onset Date Status atorvastatin Lipitor muscle pain Drug Allergy Ac tive ezetimibe / simvastatin Vytorin muscle pain Drug Allergy Active Results Component Value Reference Range Notes VITAMIN D,25-OH,TOTAL,IA (17 306) Reviewed date:07/10/2024 09:14:35 AM Interpretation: Performing Lab:[facility] [address] [facility], [facility] HospitalSlcrBB[address] Korey Hillman Notes/Report: NON-FASTING; NON-FASTING; NON-FASTING; NON-FASTING; NON-FAST VITAMIN D,25-OH,TOTAL,IA 45 30-100 ng/mL Vitamin D Status 25-OH Vitamin D: Deficiency: <20 ng/mL Insufficiency: 20 - 29 ng/mL Optimal: > or = 30 ng/mL For 25-OH Vitamin D testing on patients on D2-supplementation and patients for whom quantitation of D2 and D3 fractions is required, the QuestAssureD(TM) 25-OH VIT D, (D2,D3), LC/MS/MS is recommended: order code 47079 (patients >2yrs). See Note 1 Note 1 For additional information, please refer to http://education.Al Detal.com/faq/WAD939 (This link is being provided for informational/ educational purposes only.) TSH (899) Reviewed date:07/10/2024 09:14:35 AM Interpretation: Performing Lab:[facility] [address], [place] XolvGT[address] Korey Hillman Notes/Report: NON-FASTING; NON-FASTING; NON-FASTING; NON-FASTING; NON-FAST TSH 3.57 0.40-4.50 mIU/L VITAMIN B12 (927) Reviewed date:07/10/2024 09:14:35 AM Interpretation: Performing Lab:[facility] [address], [place] DaocCJ[address] Korey Hillman Notes/Report: NON-FASTING; NON-FASTING; NON-FASTING; NON-FASTING; NON-FAST VITAMIN B12 206 910-1414 pg/mL HEMOGLOBIN A1c (496) Reviewed date:07/10/2024 09:14:35 AM Interpretation: Performing Lab:[facility] [address], [place] SaxaII[address] Korey Hillman Notes/Report: NON-FASTING; NON-FASTING; NON-FASTING; NON-FASTING; NON-FAST HEMOGLOBIN A1c 7.0 <5.7 % of total Hgb test. For someone with known diabetes, a value <7% indicates that their diabetes is well controlled and a value greater than or equal to 7% indicates suboptimal control. A1c targets should be individualized based on duration of diabetes, age, comorbid conditions, and other considerations. Currently, no consensus exists regarding use of hemoglobin A1c for diagnosis of diabetes for children. For someone without known diabetes, a hemoglobin A1c value of 6.5% or greater indicates that they may have diabetes and this should be confirmed with a follow-up CBC (INCLUDES DIFF/PLT) (639 9) Reviewed date:07/10/2024 09:14:35 AM Interpretation: Performing Lab:[facility] [address], [place] RuucUX[address] Korey Hillman Notes/Report: NON-FASTING; NON-FASTING; NON-FASTING; NON-FASTING; NON-FAST WHITE BLOOD CELL COUNT 4.9 3.8-10.8 Thousand/ uL RED BLOOD CELL COUNT 4.40 3.80-5.10 Million/uL HEMOGLOBIN 12.6 11.7-15.5 g/dL HEMATOCRIT 38.7 35.0-45.0 % MCV 88.0 80.0-100.0 fL MCH 28.6 27.0-33.0 pg MCHC 32.6 32.0-36.0 g/dL For adults, a slight decrease in the calculated MCHC value (in the range of 30 to 32 g/dL) is most likely not clinically significant; however, it should be interpreted with caution in correlation with other red cell parameters and the patient's clinical condition. RDW 13.1 11.0-15.0 % PLATELET COUNT 140 140-400 Thousand/uL MPV 11.6 7.5-12.5 fL ABSOLUTE NEUTROPHILS 3195 2683-7720 cells/uL ABSOLUTE LYMPHOCYTES 7826 343-0914 cells/uL ABSOLUTE MONOCYTES 461 200-950 cells/uL ABSOLUTE EOSINOPHILS 49 15-500 cells/uL ABSOLUTE BASOPHILS 20 0-200 cells/uL NEUTROPHILS 65.2 LYMPHOCYTES 24.0 MONOCYTES 9.4 EOSINOPHILS 1.0 BASOPHILS 0.4 COMPREHENSIVE METABOLIC PANE L (73662) Reviewed date:07/10/2024 09:14:35 AM Interpretation: Performing Lab:[facility], [facility] [facility], [facility] HealthYaffGM[address] Korey Hillman Notes/Report: NON-FASTING; NON-FASTING; NON-FASTING; NON-FASTING; NON-FAST GLUCOSE 134 65-99 mg/dL Fasting reference interval For someone without known diabetes, a glucose value >125 mg/dL indicates that they may have diabetes and this should be confirmed with a follow-up test. UREA NITROGEN (BUN) 12 7-25 mg/dL CREATININE 0.89 0.60-0.95 mg/dL EGFR 65 > OR = 60 mL/min/1.73m2 BUN/CREATININE RATIO SEE NOTE: 6-22 (calc) Not Reported: BUN and Creatinine are within reference range. SODIUM 138 135-146 mmol/L POTASSIUM 4.3 3.5-5.3 mmol/L CHLORIDE 102 98-110 mmol/L CARBON DIOXIDE 28 20-32 mmol/L CALCIUM 10.7 8.6-10.4 mg/dL PROTEIN, TOTAL 7.3 6.1-8.1 g/dL ALBUMIN 4.3 3.6-5.1 g/dL GLOBULIN 3.0 1.9-3.7 g/dL (calc) ALBUMIN/GLOBULIN RATIO 1.4 1.0-2.5 (calc) BILIRUBIN, TOTAL 0.6 0.2-1.2 mg/dL ALKALINE PHOSPHATASE 66 37-153 U/L AST 27 10-35 U/L ALT 16 6-29 U/L PTH, INTACT AND CALCIUM (883 7) Reviewed date:07/10/2024 09:14:35 AM Interpretation: Performing Lab:[facility] [employer], [place]vell[place] DesignQodnYK[address] Korey Hillman Notes/Report: NON-FASTING PARATHYROID HORMONE, INTACT 86 16-77 pg/mL Interpretive Guide Intact PTH Calcium ------- Normal Parathyroid Normal Normal Hypoparathyroidism Low or Low Normal Low Hyperparathyroidism Primary Normal or High High Secondary High Normal or Low Tertiary High High Non-Parathyroid Hypercalcemia Low or Low Normal High CALCIUM 10.8 8.6-10.4 mg/dL VITAMIN D,25-OH,TOTAL,IA (17 306) Reviewed date:04/14/2024 02:11:03 PM Interpretation: Performing Lab:COLT [address] [employer], Cerevellum DesignNgdpSG[address] Korey Hillman Notes/Report: FASTING: YES FASTING:YES NON-FASTING; NON-FASTING; NON-FASTING; NON-FASTING; NON-FAST VITAMIN D,25-OH,TOTAL,IA 40 30-100 ng/mL Insufficiency: 20 - 29 ng/mL Optimal: > or = 30 ng/mL For 25-OH Vitamin D testing on patients on D2-supplementation and patients for whom quantitation of D2 and D3 fractions is required, the QuestAssureD(TM) 25-OH VIT D, (D2,D3), LC/MS/MS is recommended: order code 49077 (patients >2yrs). See Note 1 Note 1 For additional information, please refer to http://education.Alegría/faq/JVU457 (This link is being provided for informational/ educational purposes only.) Vitamin D Status 25-OH Vitamin D: Deficiency: <20 ng/mL TSH W/REFLEX TO FT4 (37864) Reviewed date:04/14/2024 02:11:03 PM Interpretation: Performing Lab:[facility] [address], [place] RrbxCD[address] Korey Hillman Notes/Report: NON-FASTING; NON-FASTING; NON-FASTING; NON-FASTING; NON-FAST FASTING:YES FASTING: YES TSH W/REFLEX TO FT4 4.32 0.40-4.50 mIU/L VITAMIN B12 (927) Reviewed date:04/14/2024 02:11:03 PM Interpretation: Performing Lab:[facility]-[address], Cerevellum DesignTainQO[address] Korey Hillman Notes/Report: NON-FASTING; NON-FASTING; NON-FASTING; NON-FASTING; NON-FAST FASTING:YES FASTING: YES VITAMIN B12 185 306-5984 pg/mL HEMOGLOBIN A1c (496) Reviewed date:04/14/2024 02:11:03 PM Interpretation: Performing Lab:[facility]-[address], DragonplayMadwZJ[address] Korey Hillman Notes/Report: NON-FASTING; NON-FASTING; NON-FASTING; NON-FASTING; NON-FAST FASTING:YES FASTING: YES HEMOGLOBIN A1c 6.7 <5.7 % of total Hgb For someone without known diabetes, a hemoglobin A1c value of 6.5% or greater indicates that they may have diabetes and this should be confirmed with a follow-up test. For someone with known diabetes, a value <7% indicates that their diabetes is well controlled and a value greater than or equal to 7% indicates suboptimal control. A1c targets should be individualized based on duration of diabetes, age, comorbid conditions, and other considerations. Currently, no consensus exists regarding use of hemoglobin A1c for diagnosis of diabetes for children. CBC (INCLUDES DIFF/PLT) (639 9) Reviewed date:04/14/2024 02:11:03 PM Interpretation: Performing Lab:[facility] [address], [place] MbblKU[address] Korey Hillman Notes/Report: NON-FASTING; NON-FASTING; NON-FASTING; NON-FASTING; NON-FAST FASTING:YES FASTING: YES WHITE BLOOD CELL COUNT 4.7 3.8-10.8 Thousand/ uL RED BLOOD CELL COUNT 4.39 3.80-5.10 Million/uL HEMOGLOBIN 12.6 11.7-15.5 g/dL HEMATOCRIT 39.9 35.0-45.0 % MCV 90.9 80.0-100.0 fL MCH 28.7 27.0-33.0 pg MCHC 31.6 32.0-36.0 g/dL For adults, a slight decrease in the calculated MCHC value (in the range of 30 to 32 g/dL) is most likely not clinically significant; however, it should be interpreted with caution in correlation with other red cell parameters and the patient's clinical condition. RDW 13.6 11.0-15.0 % PLATELET COUNT 136 140-400 Thousand/uL MPV 12.1 7.5-12.5 fL ABSOLUTE NEUTROPHILS 2975 3957-3980 cells/uL ABSOLUTE LYMPHOCYTES 2842 440-6007 cells/uL ABSOLUTE MONOCYTES 310 200-950 cells/uL ABSOLUTE EOSINOPHILS 52 15-500 cells/uL ABSOLUTE BASOPHILS 19 0-200 cells/uL NEUTROPHILS 63.3 LYMPHOCYTES 28.6 MONOCYTES 6.6 EOSINOPHILS 1.1 BASOPHILS 0.4 LIPID PANEL, STANDARD (7600) Reviewed date:04/14/2024 02:11:03 PM Interpretation: Performing Lab:[facility] [address] [facility], [facility] HospitalFyyaSE[address] Korey Hillman Notes/Report: NON-FASTING; NON-FASTING; NON-FASTING; NON-FASTING; NON-FAST FASTING:YES FASTING: YES CHOLESTEROL, TOTAL 158 <200 mg/dL HDL CHOLESTEROL 51 > OR = 50 mg/dL TRIGLYCERIDES 169 <150 mg/dL LDL-CHOLESTEROL 80 Reference range: <100 Desirable range <100 mg/dL for primary prevention; <70 mg/dL for patients with CHD or diabetic patients with > or = 2 CHD risk factors. LDL-C is now calculated using the Clara calculation, which is a validated novel method providing better accuracy than the Friedewald equation in the estimation of LDL-C. Chan BARRIENTOS et al. YVETTE. 2013;310(19): 6383-7188 (http://education.[employer].com/faq/IGX585) CHOL/HDLC RATIO 3.1 <5.0 (calc) NON HDL CHOLESTEROL 107 <130 mg/dL (calc) For patients with diabetes plus 1 major ASCVD risk factor, treating to a non-HDL-C goal of <100 mg/dL (LDL-C of <70 mg/dL) is considered a therapeutic option. VITAMIN B12 (927) Reviewed date:01/07/2024 02:01:04 PM Interpretation: Performing Lab:[facility] [address] [facility], [place] EyviNS[address] Korey Hillman Notes/Report: FASTING: YES FASTING:YES NON-FASTING; NON-FASTING; NON-FASTING; NON-FASTING; NON-FAST VITAMIN B12 753 400-3321 pg/mL HEMOGLOBIN A1c (496) Reviewed date:01/07/2024 02:01:04 PM Interpretation: Performing Lab:[facility] [address] [facility], Cerevellum DesignRraaHN[address] Korey Hillman Notes/Report: FASTING: YES FASTING:YES NON-FASTING; NON-FASTING; NON-FASTING; NON-FASTING; NON-FAST HEMOGLOBIN A1c 6.3 <5.7 % of total Hgb For someone without known diabetes, a hemoglobin A1c value between 5.7% and 6.4% is consistent with prediabetes and should be confirmed with a follow-up test. This assay result is consistent with an increased risk of diabetes. Currently, no consensus exists regarding use of hemoglobin A1c for diagnosis of diabetes for children. This test was performed on the Curry bacilio c503 platform. Effective 06/30/23, a change in test platforms from the [employer] to the Curry bacilio c503 may have shifted HbA1c results compared to historical results. Based on laboratory validation testing conducted at [facility], the Curry platform relative to the Hawthorne platform had an average increase in HbA1c value of < or = 0.3%. This difference is within accepted variability For someone with known diabetes, a value <7% indicates that their diabetes is well controlled. A1c targets should be individualized based on duration of diabetes, age, comorbid conditions, and other considerations. established by the National Glycohemoglobin Standardization Program. Note that not all individuals will have had a shift in their results and direct comparisons between historical and current results for testing conducted on different platforms is not recommended. CBC (INCLUDES DIFF/PLT) (679 9) Reviewed date:01/07/2024 02:01:04 PM Interpretation: Performing Lab:[facility] Lhal[address] [facility], [facility] HealthExigZW[address] Korey Hillman Notes/Report: NON-FASTING; NON-FASTING; NON-FASTING; NON-FASTING; NON-FAST FASTING:YES FASTING: YES WHITE BLOOD CELL COUNT 4.7 3.8-10.8 Thousand/ uL RED BLOOD CELL COUNT 4.35 3.80-5.10 Million/uL HEMOGLOBIN 12.7 11.7-15.5 g/dL HEMATOCRIT 40.0 35.0-45.0 % MCV 92.0 80.0-100.0 fL MCH 29.2 27.0-33.0 pg MCHC 31.8 32.0-36.0 g/dL RDW 13.2 11.0-15.0 % PLATELET COUNT 124 140-400 Thousand/uL MPV 11.5 7.5-12.5 fL ABSOLUTE NEUTROPHILS 2829 7929-3678 cells/uL ABSOLUTE LYMPHOCYTES 1141 221-3812 cells/uL ABSOLUTE MONOCYTES 371 200-950 cells/uL ABSOLUTE EOSINOPHILS 99 15-500 cells/uL ABSOLUTE BASOPHILS 19 0-200 cells/uL NEUTROPHILS 60.2 LYMPHOCYTES 29.4 MONOCYTES 7.9 EOSINOPHILS 2.1 BASOPHILS 0.4 COMMENT(S) Review of peripheral smear confirms automated results. COMPREHENSIVE METABOLIC PANE L (12435) Reviewed date:01/07/2024 02:01:04 PM Interpretation: Performing Lab:[facility] Dtru[address] [facility], [facility] HealthGpdcIB[address] Korey Hillman Notes/Report: NON-FASTING; NON-FASTING; NON-FASTING; NON-FASTING; NON-FAST FASTING:YES FASTING: YES GLUCOSE 123 65-99 mg/dL Fasting reference interval For someone without known diabetes, a glucose value between 100 and 125 mg/dL is consistent with prediabetes and should be confirmed with a follow-up test. UREA NITROGEN (BUN) 9 7-25 mg/dL CREATININE 0.79 0.60-0.95 mg/dL EGFR 75 > OR = 60 mL/min/1.73m2 BUN/CREATININE RATIO SEE NOTE: 6-22 (calc) Not Reported: BUN and Creatinine are within reference range. SODIUM 140 135-146 mmol/L POTASSIUM 4.3 3.5-5.3 mmol/L CHLORIDE 105 98-110 mmol/L CARBON DIOXIDE 28 20-32 mmol/L CALCIUM 10.3 8.6-10.4 mg/dL PROTEIN, TOTAL 7.2 6.1-8.1 g/dL ALBUMIN 4.4 3.6-5.1 g/dL GLOBULIN 2.8 1.9-3.7 g/dL (calc) ALBUMIN/GLOBULIN RATIO 1.6 1.0-2.5 (calc) BILIRUBIN, TOTAL 0.5 0.2-1.2 mg/dL ALKALINE PHOSPHATASE 37 37-153 U/L AST 28 10-35 U/L ALT 15 6-29 U/L LIPID PANEL, STANDARD (1360) Reviewed date:01/07/2024 02:01:03 PM Interpretation: Performing Lab:COLT [address] [employer], DreamHostOibwIP[address] Korey Hillman Notes/Report: NON-FASTING; NON-FASTING; NON-FASTING; NON-FASTING; NON-FAST FASTING:YES FASTING: YES CHOLESTEROL, TOTAL 153 <200 mg/dL HDL CHOLESTEROL 47 > OR = 50 mg/dL TRIGLYCERIDES 189 <150 mg/dL LDL-CHOLESTEROL 78 Reference range: <100 Desirable range <100 mg/dL for primary prevention; <70 mg/dL for patients with CHD or diabetic patients with > or = 2 CHD risk factors. LDL-C is now calculated using the Chan-Arguelles calculation, which is a validated novel method providing better accuracy than the Friedewald equation in the estimation of LDL-C. Chan SS et al. YVETTE. 2013;310(19): 0170-2905 (http://education.[employer].com/faq/KKN208) CHOL/HDLC RATIO 3.3 <5.0 (calc) NON HDL CHOLESTEROL 106 <130 mg/dL (calc) For patients with diabetes plus 1 major ASCVD risk factor, treating to a non-HDL-C goal of <100 mg/dL (LDL-C of <70 mg/dL) is considered a therapeutic option. VITAMIN D,25-OH,TOTAL,IA (10 088) Reviewed date:01/07/2024 02:01:04 PM Interpretation: Performing Lab:COLT [address] [employer], DreamHostBwcbPR[address] Korey Hillman Notes/Report: NON-FASTING; NON-FASTING; NON-FASTING; NON-FASTING; NON-FAST FASTING:YES FASTING: YES VITAMIN D,25-OH,TOTAL,IA 34 30-100 ng/mL Vitamin D Status 25-OH Vitamin D: Deficiency: <20 ng/mL Insufficiency: 20 - 29 ng/mL Optimal: > or = 30 ng/mL For 25-OH Vitamin D testing on patients on D2-supplementation and patients for whom quantitation of D2 and D3 fractions is required, the QuestAssureD(TM) 25-OH VIT D, (D2,D3), LC/MS/MS is recommended: order code 99079 (patients >2yrs). See Note 1 Note 1 For additional information, please refer to http://education.Alegría/faq/NLB721 (This link is being provided for informational/ educational purposes only.) PTH, INTACT WITHOUT CALCIUM (31428) Reviewed date:01/10/2024 12:44:19 PM Interpretation: Performing Lab:[facility] Putr[address]39 [facility]itt[facility] ValleyL[address] Korey Hillman Notes/Report: NON-FASTING PARATHYROID HORMONE, INTACT 127 16-77 pg/mL Interpretive Guide Intact PTH Calcium ------- Normal Parathyroid Normal Normal Hypoparathyroidism Low or Low Normal Low Hyperparathyroidism Primary Normal or High High Secondary High Normal or Low Tertiary High High Non-Parathyroid Hypercalcemia Low or Low Normal High Reason For Referral No Information Medications Medication SIG (Take, Route, Frequency, Duration) Notes Start Date End Date Status Sertraline HCl 50 MG Take 1 tablet by mo h once daily Orally Once a day; Duration: 30 days Active SOFTCLIX LANCETS FOR DIABETIC TESTING ONCE DAILY; Duration: 30 DAYS 10/12/2017 Active Aspirin 81 MG 1 TAB(S) ORALLY ONCE A DAY; Duration: 30 DAY(S) Active Fenofibrate 54 MG Take 1 tablet by reyna once daily; Duration: 30 Active Fluconazole 150 MG 1 tab every 3 days x 3 doses then weekly x 3 Orally as driected; Duration: 30 days 11/02/2024 Active Prolia 60 MG/ML as directed subcutan eously every 6 months Active Magnesium Oxide 400 MG 1 tab(s) orally o nce a day at bedtime; Duration: 90 Active metFORMIN HCl ER 500 MG 1 tab(s) orally twice a day; Duration: 90 days Active ZyrTEC Allergy 10 MG 1 tab(s) orally onc e a day; Duration: 90 Active ACCU-CHEK FRANCO PLUS TEST STRIPS USE TO TEST BLOOD SUGAR ONCE DAILY; Duration: 90 DAYS 07/22/2017 Active ACCU-CHEK FRANCO METER 08/12/2016 Active Crestor 10 MG 1 tab(s) orally once a day(at bedtime); Duration: 90 days Active Advil PRN Active traZODone HCl 50 MG 1-2 tabs orally at b edtime; Duration: 90 days Active Vitamin D (Ergocalciferol) 1.25 MG (01018 UT) 1 cap(s) orally daily Active Losartan Potassium 50 MG 1 tab(s) orally once a day; Duration: 90 days Active B-12 1000 MCG 1 tab(s) orally once a day Active Omeprazole 40 MG Take 1 capsule by mo uth once daily orally once a day; Duration: 90 days Active busPIRone HCl 5 MG 1 tablet Orally Twic e a day; Duration: 30 days 11/02/2024 Active Tylenol Extra Strength 500 MG 2 tab(s) orally Q6H prn Acti ve Immunizations Vaccine Route Administration Date Status Comme nts Arexvy IM Intramuscular 04/13/2024 Administered Covid Moderna Unknown 06/05/2020 Administered Covid Moderna Unknown 07/03/2020 Administered Fluzone High Dose IM Intramuscular 01/27/2018 Administered Fluzone High Dose IM Intramuscular 02/15/2019 Administered Fluzone High Dose IM Intramuscular 03/05/2020 Administered Fluzone High Dose IM Intramuscular 01/23/2021 Administered Fluzone High Dose IM Intramuscular 02/16/2023 Administered Fluzone High Dose IM Intramuscular 01/06/2024 Administered Influenza (Fluzone)--Medicare only IM Intramuscular 03/18/2015 Administered Influenza (Fluzone)--Medicare only IM Intramuscular 02/17/2016 Administered Influenza (Fluzone)--Medicare only IM Intramuscular 03/16/2017 Administered Pneumovax 23 IM Intramuscular 03/02/2018 Administered Prevnar PCV-13 (Pneumococcal conjugate 13) IM Intramuscular 09/05/2019 Administered SHINGRIX IM Intramuscular 09/24/2022 Administered SHINGRIX IM Intramuscular 01/28/2023 Administered Problems Problem Type SNOMED Code ICD Code Onset Dates Problem Status W/U Status Risk Notes Problem Mixed hyperlipidemia (840099672) Mixed hyperlipidemia (E78.2) Active confirmed Problem Hypercalcemia (58874544) Hypercalcemia (E83.52) Active confirmed Problem Psychophysiologic insomnia (234946082) Psychophysiologic insomnia (F51.04) Active confirmed Problem Essential hypertension (28842429) Essential (primary) hypertension (I10) Active confirmed Problem Cervicalgia (16544097) Cervicalgia (M54.2) Active confirmed Problem Overactive bladder (844796268) Overactive bladder (N32.81) Active confirmed Problem Fatigue (29438746) Other fatigue (R53.83) Active confirmed Problem Mixed anxiety and depressive disorder (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) Depression with anxiety (F41.8) Active confirmed Problem Vitamin D deficiency (51518431) Vitamin D deficiency (E55.9) Active confirmed Problem Vitamin B12 deficiency (non anemic) (00570175) Vitamin B 12 deficiency (E53.8) Active confirmed Problem Gastroesophageal reflux disease (711464209) GERD without esophagitis (K21.9) Active confirmed Problem Restless legs (84653903) RLS (restless legs syndrome) (G25.81) Active confirmed Problem Body mass index 30.00 to 34.99 (950646789780137) BMI 34.0-34.9,adult (Z68.34) Active confirmed Problem Body mass index 30+ - obesity (502699993) BMI 30.0-30.9,adult (Z68.30) Active confirmed Problem Degeneration of lumbar intervertebral disc (63124223) Lumbar degenerative disc disease (M51.36) Active confirmed Problem Insomnia (107893230) Insomnia, unspecified type (G47.00) Active confirmed Problem Hyperlipidaemia (37507530) Hyperlipidemia, unspecified hyperlipidemia type (E78.5) Active confirmed Problem Type II diabetes mellitus without complication (382101081) Type 2 diabetes mellitus without complication, without long-term current use of insulin (E11.9) Active confirmed Problem Seasonal allergic rhinitis (960154167) Seasonal allergic rhinitis, unspecified allergic rhinitis trigger (J30.2) Active confirmed Problem Neuropathy due to type 2 diabetes mellitus (504600702252148) Type 2 diabetes, controlled, with neuropathy (E11.40) Active confirmed Problem Postmenopausal osteoporosis (408033923) Postmenopausal osteoporosis (M81.0) Active confirmed Vital Signs Heart Rate 96 /min 11/02/2024 Temperature 97.6 degrees Fahrenheit 11/02/2024 Blood pressure diastolic 82 mm Hg 11/02/2024 Height 64.5 in 11/02/2024 Blood pressure systolic 124 mm Hg 11/02/2024 Weight 170.2 lbs 11/02/2024 BMI 28.76 kg/m2 11/02/2024 Encounters Encounter Location Date Provider Diagnosis [facility] [address] [place] [address] 07/29/2024 Provider Migration Tooth abscess K04.7 [facility] [address] [place] [address] 11/02/2024 Coni McNees Depression with anxi ety F41.8 ; Vaginal yeast infection B37.31 and Persistent cough R05.3 [facility] [address] [place] [address] 01/06/2024 Coni McAies Type 2 diabetes radha itus without complication, without long-term current use of insulin E11.9 ; Essential (primary) hypertension I10 ; Hyperlipidemia, unspecified hyperlipidemia type E78.5 ; Depression with anxiety F41.8 ; Seasonal allergic rhinitis, unspecified allergic rhinitis trigger J30.2 ; Overactive bladder N32.81 ; Psychophysiologic insomnia F51.04 ; Vitamin B12 deficiency E53.8 ; Elevated parathyroid hormone R79.89 ; Vitamin D deficiency E55.9 ; Elevated TSH R79.89 ; Postmenopausal osteoporosis M81.0 and Immunization(s) administered Z23 [facility] [address] [place] [address] 04/13/2024 Coni McNees Type 2 diabetes radha itus without complication, without long-term current use of insulin E11.9 ; Hyperlipidemia, unspecified hyperlipidemia type E78.5 ; Depression with anxiety F41.8 ; Essential (primary) hypertension I10 ; Seasonal allergic rhinitis, unspecified allergic rhinitis trigger J30.2 ; Overactive bladder N32.81 ; Psychophysiologic insomnia F51.04 ; Vitamin B12 deficiency E53.8 ; Elevated parathyroid hormone R79.89 ; Vitamin D deficiency E55.9 ; Elevated TSH R79.89 ; Postmenopausal osteoporosis M81.0 and Encounter for immunization Z23 [facility] [address] [place] [address] 07/06/2024 Coni Jesusita Hyperlipidemia, unspecified hyperlipidemia type E78.5 ; Type 2 diabetes mellitus without complication, without long-term current use of insulin E11.9 ; Depression with anxiety F41.8 ; Essential (primary) hypertension I10 ; Seasonal allergic rhinitis, unspecified allergic rhinitis trigger J30.2 ; Overactive bladder N32.81 ; Psychophysiologic insomnia F51.04 ; Vitamin B12 deficiency E53.8 ; Elevated parathyroid hormone R79.89 ; Vitamin D deficiency E55.9 ; Elevated TSH R79.89 ; Postmenopausal osteoporosis M81.0 and Tooth abscess K04.7 [facility] [address] [place] [address] 10/05/2024 Coni Jesusita Hyperlipidemia, unspecified hyperlipidemia type E78.5 ; Encounter [...] immunization Z23 and Vaginal yeast infection B37.31 [facility] [address] [place] [address] 01/31/2024 Coni Jesusita [facility] [address] [place] [address] 02/19/2024 Coni Leylaes [facility] [address] [place] [address] 07/06/2024 Coni Mc [address] [address] [place] [address] 08/18/2024 Coni Mc Assessments Encounter Date Diagnosis (ICD Code) Assessment Notes Treatment Notes Treatment Clinical Notes Section Notes 01/06/2024 Essential (primary) hypertension (ICD-10 - I10) Blood pressure at goal 01/06/2024 Type 2 diabetes mellitus without complication, without long-term current use of insulin (ICD-10 - E11.9) No changes made today. Recommend to update eye exam, wear supportive footwear, monitor foot daily for lesions and follow diabetic diet. Will check a1c and treat as indicated 04/13/2024 Hyperlipidemia, unspecified hyperlipidemia type (ICD-10 - E78.5) Tolerating statin well. Will check fasting lipid panel and treat as indicated. 04/13/2024 Type 2 diabetes mellitus without complication, without long-term current use of insulin (ICD-10 - E11.9) No changes made today. Recommend to update eye exam, wear supportive footwear, monitor foot daily for lesions and follow diabetic diet. Will check a1c and treat as indicated 07/06/2024 Hyperlipidemia, unspecified hyperlipidemia type (ICD-10 - E78.5) Tolerating statin well. Will check fasting lipid panel and treat as indicated. 07/06/2024 Type 2 diabetes mellitus without complication, without long-term current use of insulin (ICD-10 - E11.9) No changes made today. Recommend to update eye exam, wear supportive footwear, monitor foot daily for lesions and follow diabetic diet. Will check a1c and treat as indicated 10/05/2024 Encounter for Medicare annual wellness exam (ICD-10 - Z00.00) Given patient''s advanced age is not a candidate for typical healthcare screening such as colonoscopy. No recent falls. Up-to-date with vaccinations. Nonsmoker. BMi is above goal 10/05/2024 Hyperlipidemia, unspecified hyperlipidemia type (ICD-10 - E78.5) Tolerating statin well. Will check fasting lipid panel and treat as indicated. 11/02/2024 Depression with anxiety (ICD-10 - F41.8) Increase SSRI. Discussed rationale for pharmacotherapy, and discussed MOA of med. Discussed time course of expected improvements, and discussed side effect profile need for urgent evaluation if agitation or worsening mood occurs. Discussed need for f/u in office. RTC in 4 weeks or sooner prn 11/02/2024 Vaginal yeast infection (ICD-10 - B37.31) Keep clean and dry. Diflucan as above 10/05/2024 Type 2 diabetes mellitus without complication, without long-term current use of insulin (ICD-10 - E11.9) Recommend to update eye exam, wear supportive footwear, monitor foot daily for lesions and follow diabetic diet. Will check a1c and treat as indicated 07/06/2024 Depression with anxiety (ICD-10 - F41.8) Stable off of SSRI 04/13/2024 Depression with anxiety (ICD-10 - F41.8) Improved on low dose SSRI. No changes made today 01/06/2024 Hyperlipidemia, unspecified hyperlipidemia type (ICD-10 - E78.5) Tolerating statin well. Will check fasting lipid panel and treat as indicated. 04/13/2024 Essential (primary) hypertension (ICD-10 - I10) Blood pressure well controlled 01/06/2024 Depression with anxiety (ICD-10 - F41.8) Improved on low dose SSRI. No changes made today 07/06/2024 Essential (primary) hypertension (ICD-10 - I10) Blood pressure at goal 10/05/2024 Depression with anxiety (ICD-10 - F41.8) Increase SSRI. Discussed rationale for pharmacotherapy, and discussed MOA of med. Discussed time course of expected improvements, and discussed side effect profile need for urgent evaluation if agitation or worsening mood occurs. Discussed need for f/u in office. RTC in 4 weeks or sooner prn 11/02/2024 Persistent cough (ICD-10 - R05.3) 10/05/2024 Essential (primary) hypertension (ICD-10 - I10) Blood pressure at goal 07/06/2024 Seasonal allergic rhinitis, unspecified allergic rhinitis trigger (ICD-10 - J30.2) Well controlled 04/13/2024 Seasonal allergic rhinitis, unspecified allergic rhinitis trigger (ICD-10 - J30.2) Well controlled 01/06/2024 Seasonal allergic rhinitis, unspecified allergic rhinitis trigger (ICD-10 - J30.2) Well controlled 04/13/2024 Overactive bladder (ICD-10 - N32.81) At baseline on Gemtesa 01/06/2024 Overactive bladder (ICD-10 - N32.81) At baseline on Gemtesa 07/06/2024 Overactive bladder (ICD-10 - N32.81) At baseline on Gemtesa 10/05/2024 Seasonal allergic rhinitis, unspecified allergic rhinitis trigger (ICD-10 - J30.2) Well controlled 10/05/2024 Post-viral cough syndrome (ICD-10 - R05.8) Reassurance lung exam is normal. Dexamethasone IM. Discussed supportive care and return precautions. Will re-evaluate at FU in 4 weeks 07/06/2024 Psychophysiologic insomnia (ICD-10 - F51.04) At baseline on trazodone, no changes 04/13/2024 Psychophysiologic insomnia (ICD-10 - F51.04) At baseline on trazodone, no changes 01/06/2024 Psychophysiologic insomnia (ICD-10 - F51.04) At baseline on trazodone, no changes 01/06/2024 Vitamin B12 deficiency (ICD-10 - E53.8) Will check B12/CBC to confirm stabiity 04/13/2024 Vitamin B12 deficiency (ICD-10 - E53.8) Will check B12/CBC to confirm stabiity 07/06/2024 Vitamin B12 deficiency (ICD-10 - E53.8) Will check B12/CBC to confirm stabiity 10/05/2024 Cervicalgia (ICD-10 - M54.2) Rest, warm compresses,tylen ol prn, dex IM 10/05/2024 Overactive bladder (ICD-10 - N32.81) At baseline off of Gemtesa 07/06/2024 Elevated parathyroid hormone (ICD-10 - R79.89) Continue vit d replacement. Scan reviewed and negative for parathyroid adenoma. Advised to schedule sooner FU with nephrology to discuss prolia. Note reviewed and no indication of extending time between prolia injections 04/13/2024 Elevated parathyroid hormone (ICD-10 - R79.89) Continue vit d replacement. Scan reviewed and negative for parathyroid adenoma. Keep FU with nephrology 01/06/2024 Elevated parathyroid hormone (ICD-10 - R79.89) Continue vit d replacement. Scan reviewed and negative for parathyroid adenoma. Keep FU with nephrology 01/06/2024 Vitamin D deficiency (ICD-10 - E55.9) Will check vit d level and treat as indicated. 04/13/2024 Vitamin D deficiency (ICD-10 - E55.9) Will check vit d level and treat as indicated. 07/06/2024 Vitamin D deficiency (ICD-10 - E55.9) Will check vit d level and treat as indicated. 10/05/2024 Psychophysiologic insomnia (ICD-10 - F51.04) At baseline on trazodone, no changes 10/05/2024 Vitamin B12 deficiency (ICD-10 - E53.8) Will check B12/CBC to confirm stabiity 07/06/2024 Elevated TSH (ICD-10 - R79.89) Will repeat and treat as indicated. 04/13/2024 Elevated TSH (ICD-10 - R79.89) Will repeat and treat as indicated. 01/06/2024 Elevated TSH (ICD-10 - R79.89) Will repeat and treat as indicated. 01/06/2024 Postmenopausal osteoporosis (ICD-10 - M81.0) Cont vit d, prolia injections. 04/13/2024 Postmenopausal osteoporosis (ICD-10 - M81.0) Cont vit d, prolia injections. 07/06/2024 Postmenopausal osteoporosis (ICD-10 - M81.0) Cont vit d, prolia injections. 10/05/2024 Elevated parathyroid hormone (ICD-10 - R79.89) Continue vit d replacement. Reschedule FU with nephrology 07/06/2024 Tooth abscess (ICD-1 0 - K04.7) Spoke with Dr. Anderson's office regarding unsure antibiotic dosing who reports patient was to receive a week of amox, not a one time dose. Given her swelling, was changed to Augmentin. Keep FU with oral surgeon next week. Sooner return precautions discussed. 07/29/2024 Tooth abscess (ICD-1 0 - K04.7) 10/05/2024 Vitamin D deficiency (ICD-10 - E55.9) Will check vit d level and treat as indicated. 04/13/2024 Encounter for immunization (ICD-10 - Z23) 01/06/2024 Immunization(s) administered (ICD-10 - Z23) 10/05/2024 Elevated TSH (ICD-10 - R79.89) Will repeat and treat as indicated. 10/05/2024 Postmenopausal osteoporosis (ICD-10 - M81.0) Cont vit d, prolia injections. 10/05/2024 Encounter for immunization (ICD-10 - Z23) 10/05/2024 Vaginal yeast infection (ICD-10 - B37.31) Keep clean and dry. Diflucan as above Plan Of Treatment Pending Test Test Name Order Date X ray : Chest 11/02/2024 Mammogram : Right Breast 01/09/2014 Mammogram : Right Breast 12/27/2012 Mammogram : Bilateral 01/31/2015 H-CMP 11/12/2016 H-LIPID PANEL 11/12/2016 H-HGBA1C 11/12/2016 H-HGBA1C 07/17/2016 H-HEPATITIS PROFILE (CHRONIC) 07/17/2016 C-CBC 07/14/2016 C-LIPID PANEL 07/14/2016 C-TSH 07/14/2016 M-Comprehensive Metabolic Panel 12/05/19 M-Hemoglobin A1C 12/05/2019 M-Lipid Panel 12/05/2019 M-Hepatitis Panel (4) 09/07/2019 Comprehensive Metabolic Panel (CMP) 12/26 TSH W/REFLEX TO FT4 ([id number]) 06/17/2023 Next Appt Details Provider Name:Coni Paulson, 12/05/2024 10:00:00 AM, [address], [address], [place], [address], Insurance Providers Payer Name Payer Address Payer Phone Subscriber Number Group Number Insured Name Patient Relationship to Insured Coverage Start Date Coverage End Date [place] [address] [place] [address] [id number] Jessica Brown Self - patient is the insured [facility] [address] [place] [address] [id number] Jessica Brown Self - patient is the insured Medications Administered Medication Instructions Date of Administration Dosage Notes Cyanocobalamin/B-12 Pt's Own Medication 02/02/2023 1 mL Cyanocobalamin/B-12 Pt's Own Medication 02/09/2023 1 mL Cyanocobalamin/B-12 Pt's Own Medication 02/16/2023 1 mL Cyanocobalamin/B-12 Pt's Own Medication 02/23/2023 1 mL Cyanocobalamin/B-12 Pt's Own Medication 03/02/2023 1 mL Cyanocobalamin/B-12 Pt's Own Medication 03/09/2023 1 mL Cyanocobalamin/B-12 Pt's Own Medication 03/16/2023 1 mL Cyanocobalamin/B-12 Pt's Own Medication 03/22/2023 1 mL Dexamethasone 4mg Injection 09/30/2023 4 mg Dexamethasone 4mg Injection 10/05/2024 4 mg Triamcinolone Acetonide 40mg Injection 08/03/2018 1 mL Medical (General) History Medical History History ICD Code HLD HTN osteoporosis Surgical History Surgery Date(Month/Year) Tubligation 1971 Gall Bladder Removal 2010 D&C 1961 Hospitalization History Reason Date(Month/Year) D&C 1961 Tubal ligation 1971
--- NOTE | 2024-11-02 11:29 | XR_ITS ---
FINAL REPORT CLINICAL HISTORY: PERSISTANT COUGH x1 month FINDINGS: CHEST 2 VIEWS PA AND LATERAL There is mild cardiomegaly. The mediastinum is unremarkable. There are mild chronic changes in both lungs. There is no pneumothorax. IMPRESSION: No acute process. Reviewed, Interpreted and Dictated by Franck Carver MD Transcribed by Corrine Ortega Authenticated and [facility]
== END 2024-11-02 23:59 | disposition home or self-care (01) ==
LOC: RAD 11:25
PROVIDERS: PCP Nurse Practitioner Family; Visit Provider Nurse Practitioner Family
DX: R05.3 Chronic cough (principal)
CPT/HCPCS: 71046

== ENCOUNTER 2025-02-09 12:36 | Outpatient (CLI) | payer MEDICARE, SELFPAY ==
[2025-02-09 13:46] LABS: Albumin Level 4.2 g/dl (3.5-5.0); Anion Gap 12.4 mEq/L (5-15); Blood Urea Nitrogen 11 mg/dl (7-17); Calcium 10.7 mg/dl (8.4-10.2); Carbon Dioxide 30 mmol/L (22.0-30.0); Chloride 104 mmol/L (98-107); Creatinine,Serum 0.80 mg/dl (0.52-1.04); Estimated Glomerular Filt Rate 69 ml/min (>60); GFR (African American) 83 ML/MIN (>60); Glucose 132 mg/dl (74-100); Phosphorous 2.7 mg/dl (2.5-4.5); Potassium 4.4 mmoL/L (3.5-5.1); Sodium 142 mmol/L (136-145)
[2025-02-09 14:04] LABS: 25-OH Vitamin D, Total 63.8 ng/mL (30-100)
== END 2025-02-09 23:59 | disposition home or self-care (01) ==
LOC: LAB 12:38
PROVIDERS: PCP Nurse Practitioner Family; Visit Provider Nurse Practitioner
DX: E83.52 Hypercalcemia (principal)
CPT/HCPCS: 36415; 80069; 82306; 83970; 84080

== ENCOUNTER 2025-03-02 10:47 | Outpatient (CLI) | payer MEDICARE, SELFPAY ==
--- OUTSIDE RECORDS SUMMARY | 2024-07-29 16:30 | XMS_ITS ---
Author Organization [facility] Address [address] [place] [address] Care Team Providers Care Cement Conveyor Operator Name Role Phone Dominic Boles Primary Care Provider McNees, Coni Unavailable [phone] Dominic Boles Unavailable Unavailable Migration, Provider Unavailable Unavailable Allergies Allergen (clinical drug ingredient) Drug/Non Drug Allergy documented on EMR Reaction Allergy Type Onset Date Status atorvastatin Lipitor muscle pain Drug Allergy Ac tive ezetimibe / simvastatin Vytorin muscle pain Drug Allergy [facility] Encounter Medications Medication SIG (Take, Route, Frequency, Duration) Notes Start Date End Date Status traZODone HCl 50 MG as directed orally a t bedtime; Duration: 90 days Active ACCU-CHEK FRANCO METER *Please review for potential replacement for e-prescription and drug interaction check* 08/12/2016 Active Advil PRN *Please review a nd pick correct strength-formulati on from [facility]. If intended option is not shown, discontinue and re-order from Quick Search* Active Probiotic 1 TAB PO QD *Please review a nd pick correct strength-formulati [facility] from [facility]. If intended option is not shown, discontinue and re-order from Quick Search* Active Vitamin D (Ergocalciferol) 1.25 MG (73007 UT) 1 cap(s) orally once a week Active Prolia 60 MG/ML as directed subcutaneously every 6 months Active B-12 1000 MCG 1 tab(s) orally once a day Active Amoxicillin-Pot Clavulanate 875-125 MG as directed orally every 12 hours; Duration: 10 days 07/06/2024 Active Percocet 5-325 MG 1 tab(s) orally ever y 6 hours Active Fenofibrate 54 MG 1 tab(s) orally once a day; Duration: 30 days Active Sertraline HCl 25 MG 1 tab(s) orally once a day; Duration: 90 days Active Losartan Potassium 50 MG 1 tab(s) orally once a day; Duration: 90 days Active Magnesium Oxide 400 MG 1 tab(s) orally once a day at bedtime; Duration: 90 Active metFORMIN HCl ER 500 MG 1 tab(s) orally twice a day; Duration: 90 days Active Crestor 10 MG 1 tab(s) orally once a day(at bedtime); Duration: 90 days Active Gemtesa 75 MG 1 tab(s) orally once a day; Duration: 30 days 02/25/2023 Active ACCU-CHEK FRANCO PLUS TEST STRIPS USE TO TEST BLOOD SUGAR ONCE DAILY; Duration: 90 DAYS E11.9 *Please review for potential replacement for e-prescription and drug interaction check* 07/22/2017 Active ZyrTEC Allergy 10 MG 1 tab(s) orally once a day; Duration: 90 Active SOFTCLIX LANCETS FOR DIABETIC TESTING ONCE DAILY; Duration: 30 DAYS E11.9 *Please review for potential replacement for e-prescription and drug interaction check* 10/12/2017 Active Omeprazole 40 MG Take 1 capsule by mouth once daily orally once a day; Duration: 90 days Active Aspirin 81 MG 1 TAB(S) ORALLY ONCE A DAY; Duration: 30 DAY(S) *Please review and pick correct strength-formulati on from [facility] options. If intended option is not shown, discontinue and re-order from Quick Search* Active Tylenol Extra Strength 500 MG 2 tab(s) orally Q6H prn Active Encounters Encounter Location Date Provider Diagnosis [facility] [address] [place], [place] [address] 07/29/2024 Provider Migration Tooth abscess K04.7 Assessments Encounter Date Diagnosis (ICD Code) Assessment Notes Treatment Notes Treatment Clinical Notes Section Notes 07/29/2024 Tooth abscess (ICD-10 - K04.7) Plan Of Treatment Medication Medication Name Sig Start Date Stop Date Notes traZODone HCl 50 MG as directed orally a t bedtime; Duration: 90 days Amoxicillin-Pot Clavulanate 875-125 MG as directed orally every 12 hours; Duration: 10 days 07/06/2024 Omeprazole 40 MG Take 1 capsule by mo uth once daily orally once a day; Duration: 90 days Next Appt Details Provider Name:Coni Dave Anil Masha, 04/05/2025 10:30:00 AM, [address] [facility] [address], [place], [address], Progress Notes * SEANRileyOB:1940 ( 84 yo F)Acc No.[id number]:07/29/2024 Patient: Jessica AVILES Provider: Rocío Villafaan :1940 A ge:83 Y S ex:Female Date:07/29/2024 Address:[address] [place], [place] [id number] Pcp:Dominic Boles Subjective: * Chief Complaints: * 1 . [facility]. * Medical History: * Medications: T aking Percocet 5-325 MG Tablet 1 tab(s) orally every 6 hours , Taking Prolia 60 MG/ML Solution Prefilled Syringe as directed subcutaneously every 6 months , Taking B- 12 1000 MCG Tablet 1 tab(s) orally once a day , Taking Vitamin D (Ergocalciferol) 1.25 MG (17248 UT) Capsule 1 cap(s) orally once a week , Taking Advil PRN , Notes to Pharmacist: *Please review and pick [facility]. If intended option is not shown, discontinue and re-order from Quick Search*, Taking Probiotic 1 TAB PO QD , Notes to Pharmacist: *Please review and pick correct strength[facility]ulation [facility]. If intended option is not shown, discontinue and re-order from Quick Search*, Taking ACCU-CHEK FRANCO METER , Notes to Pharmacist: *Please review for potential replacement for e-prescription and drug interaction check*, Taking Tylenol Extra Strength 500 MG Tablet 2 tab(s) orally Q6H prn , Taking Aspirin 81 MG TABLET 1 TAB(S) ORALLY ONCE A DAY , Notes to Pharmacist: *Please review and pick correct strength-formulation from [employer] options. If intended option is not shown, discontinue and re-order from Quick Search*, Taking SOFTCLIX LANCETS FOR DIABETIC TESTING ONCE DAILY , Notes to Pharmacist: E11.9 *Please review for potential replacement for e-prescription and drug interaction check*, Taking ACCU-CHEK FRANCO PLUS TEST STRIPS USE TO TEST BLOOD SUGAR ONCE DAILY , Notes to Pharmacist: E11.9 *Please review for potential replacement for e-prescription and drug interaction check*, Taking ZyrTEC Allergy 10 MG Tablet 1 tab(s) orally once a day , Taking Gemtesa 75 MG Tablet 1 tab(s) orally once a day , Taking metFORMIN HCl ER 500 MG Tablet Extended Release 24 Hour 1 tab(s) orally twice a day , Taking Crestor 10 MG Tablet 1 tab(s) orally once a day(at bedtime) , Taking Losartan Potassium 50 MG Tablet 1 tab(s) orally once a day , Taking Magnesium Oxide 400 MG Tablet 1 tab(s) orally once a day at bedtime , Taking Sertraline HCl 25 MG Tablet 1 tab(s) orally once a day , Taking Fenofibrate 54 MG Tablet 1 tab(s) orally once a day * Allergies: V ytorin: muscle pain, Lipitor: muscle pain. Objective: * Vitals: Assessment: * Assessment: 1. T ooth abscess - K04.7 Plan: * Treatment: 2. O thers Start Omeprazole Capsule Delayed Release, 40 MG, Take 1 capsule by mouth once daily, orally, once a day, 90 days, 90, Refills 2; S tart traZODone HCl Tablet, 50 MG, as directed, orally, at bedtime, 90 days, 90, Refills 1. * * Electronic signature of Prov nikita Migration on 03/02/2025 at 10:53 AM EST Sign off status: Pending * Provider: Rocío titus Migration Date: 0 07/29/2024 Generated for Lamont padron/Arturo/Siddhartha on: 05/02/2024 10:53 AM EST
--- OUTSIDE RECORDS SUMMARY | 2025-02-16 07:20 | XMS_ITS | Encounter Summary ---
Author Organization [facility] Address [address] [place] [address] Care Team Providers Care Feed Mixer Helper Name Role Phone Coni Dave DAREN Primary Care Provider [phone] Reason for Referral * Imaging (Routine) - Authorized Specialty Diagnoses / Procedures Referred By Blair queen Referred To Contact Diagnoses Hyperparathyroidism (CMS/HCC) Hypercalcemia Procedures NM Parathyroid Scan w SPECT/CT Bridgette Escobar APRN [address] [address] Phone: tel: fax: Referral ID Status Reason Start Date Expiration Date V isits Requested Visits Authorized [id number] Authorized 02/16/2025 08/18/2026 2 2 Reason for Visit * Reason Comments Follow-up Patient is a 84 year old female that presents to the clinic on this date for a follow up for hypercalcemia. Encounter Details Date Type Department Care Team (Latest Contact Info) Description 02/16/2025 8:20 AM EDT Office Visit [facility] [address] [place] [address] Bridgette Escobar APRN [address] [address] Hyperparathyroidism (CMS/HCC) (Primary Dx); Hypercalcemia; Vitamin D deficiency Social History Tobacco Use Types Packs/Day Years [...] on file documented as of this encounter Last Filed Vital Signs Vital Sign Reading Time Taken Comments Blood Pressure 138/88 02/16/2025 8:50 AM EDT Pulse 78 02/16/2025 8:50 AM EDT Temperature - - Respiratory Rate 16 02/16/2025 8:50 AM EDT Oxygen Saturation 96% 02/16/2025 8:50 AM EDT Inhaled Oxygen Concentration - - Weight 78 kg (172 lb) 02/16/2025 8:50 AM EDT Height 165.1 cm (5' 5 ) 02/16/2025 8:50 AM EDT Body Mass Index 28.62 02/16/2025 8:50 AM EDT documented in this encounter Miscellaneous Notes * Progress Notes - Bridgette Escobar APRN - 02/16/2025 8:20 AM EDT SUBJECTIVE Jessica Brown presents as a new patient today with/for follow up Consulted by Dr. Escalera for hypercalcemia and hyperparathyroidism HISTORY OF PRESENT ILLNESS Ms. Brown is an 82yr old female with a past medical history of HLD, and HTN who presents today for follow up for hypercalcemia and hyperparathyroidism. She notes she is at her normal state of health. She denies any CP, SOA, abd pain, n/v/d, headache, or dizziness. She has no known family history of elevated calcium, renal stones, or known parathyroid issues. Sheis not on hydrochlorothiazide or any known agents that can cause hypercalcemia. She currently appears euvolemic. Parathyroid scan negative 2022, Prolia September 2023 She notes her PCP sent her back to this office due to her PTH being elevated. She is at her normal state of health. All medications have been reviewed today. OBJECTIVE Vitals: 02/16/25 0850 Resp: 16 PHYSICAL EXAMINATION Constitutional: No acute distress. Well-developed and nourished. HEENT: normal. Pupils are equal, reactive to light. Cardiovascular: Normal rate and regular rhythm; Normal heart sounds. No murmur, friction rub, gallop. No JVD Pulmonary: Normal effort of breathing; Normal breath sounds. No rales. Abdominal: soft, no distension or tenderness; Bowel sounds are normal. Musculoskeletal: Normal range of motion and neck supple. Skin: No rashes or lesions. Neurologic: No focal deficits Psychiatric: Orientated to person, place, and time: Normal Mood and affect LAB RESULTS Scanned into Media tab. ASSESSMENT/PLAN Elevated calcium with elevated PTH Low vitaminD 25, ow at goal after ergo and vit d 5000iu daily Osteoporosis- LFN -2.5 S/p prolia one dose of prolia 10/17 Negative sestamibi scan. 2022 Calcium at pk was elevated to 11.1, now down to 10.7 Vit D improved , Vit D 63.8, Goal 50-80 PTH stable but remains elevated at 132.2 Will repeat sestamibi scan. Will obtain pthrp, vitamin D 1'25, urine calcium, bone specific alk phos documented in this encounter Plan of Treatment Scheduled Orders Name Type Priority Associated Diagnoses Orde r Schedule NM Parathyroid Scan w SPECT/CT Imaging Routine Hyperparathyroidism ([facility]) Hypercalcemia Expected: 02/16/2025 (Approximate), Expires: 08/20/2026 Bone Specific Alkaline Phosphatase Lab Routine Hyperparathyroidism ([facility]) Hypercalcemia Expected: 02/16/2025 (Approximate), Expires: 08/20/2026 PTH-related peptide Lab Routine Hyperparathyroidism ([facility]) Hypercalcemia Expected: 02/16/2025 (Approximate), Expires: 08/20/2026 Vitamin D 1,25 Dihydroxy Lab Routine Hyperparathyroidism ([facility]) Hypercalcemia Expected: 02/16/2025 (Approximate), Expires: 08/17/2026 Calcium, urine, random Lab Routine Hypercalcemia Expected: 02/16/2025 (Approximate), Expires: 08/20/2026 Creatinine, urine, random Lab Routine Hypercalcemia Expected: 02/16/2025 (Approximate), Expires: 08/20/2026 documented as of this encounter Visit Diagnoses Diagnosis Hyperparathyroidism ([facility])- Primary Hyperparathyroidism, unspecified Hypercalcemia Vitamin D deficiency documented in this encounter Additional Health Concerns Assessment Noted Time A fall risk assessment has been complete d for the patient 08/10/2023 1:13 PM EDT A Body Mass Index follow-up plan has been documented for the patient 02/16/2025 9:35 AM EDT documented as of this encounter Care Teams Feed Mixer Helper Relationship Specialty Start Date End Date Coni Dave APRN [address] [place] [address] PCP - General 08/10/22 documented as of this encounter
--- OUTSIDE RECORDS SUMMARY | 2025-03-02 10:53 | XMS_ITS | Encounter Summary ---
Author Organization [facility] Address [address] [id number] Care Team Providers Care Showroom Executive Director Name Role Phone Coni Dave STAFF FORESTER Primary Care Provider [phone] Encounter Details Date Type Department Care Team ([facility] st Contact Info) Description 02/16/2025 Orders Only [facility] Nuclear Medicine [address] [place] [address] Waleska Ortiz MD [address] [place] [address] Social History Tobacco Use Types Packs/Day Years [...] on file documented as of this encounter Plan of Treatment Not on file documented as of this encounter Visit Diagnoses Not on filedocumented in this encounter Additional Health Concerns Assessment Noted Time A fall risk assessment has been complete d for the patient 08/10/2023 1:13 PM EDT A Body Mass Index follow-up plan has been documented for the patient 02/16/2025 9:35 AM EDT documented as of this encounter Care Teams Showroom Executive Director Relationship Specialty Start Date End Date Coni DaveDAREN [address] [place] [address] PCP - General 08/10/22 documented as of this encounter
--- OUTSIDE RECORDS SUMMARY | 2025-03-02 10:53 | XMS_ITS | Encounter Summary ---
Author Organization [facility] Address [address] [id number] Care Team Providers Care Hospice Fellow Name Role Phone Coni Dave KITCHEN DESIGNER Primary Care Provider [phone] Encounter Details Date Type Department Care Team (Latest Contact Info) Description 02/16/2025 Travel Social History Tobacco Use Types Packs/Day Years [...] documented as of this encounter Care Teams Hospice Fellow Relationship Specialty Start Date End Date Dave, Coni Wray APRN [address] [place] [address] PCP - General 08/10/22 documented as of this encounter
--- OUTSIDE RECORDS SUMMARY | 2025-03-02 10:53 | XMS_ITS | Clinical Summary ---
Author Organization [facility] Address [address] [place] [address] Care Team Providers Care Food Tester Name Role Phone Coni Dave APRN Primary Care Provider [phone] Allergies Active Allergy Reactions Criticality Noted Date [...] each day at the same time. 06/02/19 24 Active cyanocobalamin 1000 MCG tablet Take 1 [...] osteoporosis wit hout current pathological fracture 09/10/2023 Encounters Date Type Department Care Team Description 02/16/2025 8:20 AM EDT Office Visit [facility] [address] [place] [address] Bridgette Escobar APRN Hyperparathyroidism ([facility]) (Primary Dx); Hypercalcemia; Vitamin D deficiency 02/16/2025 Orders Only [facility] Nuclear Medicine [address] [place] [address] Waleska Ortiz MD 02/16/2025 Travel from Last 3 Months Immunizations Immunization Administration Dates Next Due Influenza, high-dose, quadrivalent 01/05,03/05/2022,01/23/2021, 020,02/15/2019,01/27/2018,02/17/2016 Influenza, injectable, quadrivalent 03/16/2017 Pneumococcal Conjugate PCV [...] Mass Index 28.62 02/16/2025 8:50 AM EDT Plan of Treatment Health Maintenance Due Date Last Done Comments [facility]-Bone Density Scan 1941 [facility]-Medicare Annual Wellness (AWV) 1940 [facility]-/Child/Adol SDOH Screenings 1940 [facility]- SDOH Screenings 09/15/1959 [facility]-Adult SDOH Screenings 09/15/1959 [facility]-DTaP,Tdap,and Td Vaccines (1 - Tdap) 1960 [facility]-Zoster Vaccines (1 of 2) 09/15/1991 [facility]-Depression Screening 08/09/2024 08/10/2023 [id number] Vaccine (6 - 2024- season) 2024 03/09/2023, 01/01/2022, 02/21/2021, Additional history exists [facility]-Influenza Vaccine (#1) 12/25/202401/05, 03/05/2022, 01/23/2021, Additional history exists [facility]-Pneumococcal Vaccine: 50+ Years Completed 09/05/2019, 03/02/2018 [facility]-RSV Vaccine: 60+ Years or Completed 04/13/2024 [facility]-Obesity Intervention Completed 025, 02/18/2024, 08/10/2023, Additional history exists HPV Vaccines Aged Out [...] patient's age to complete this topic Insurance [facility] MEDICARE Care Teams Food Tester Relationship Specialty Start Date End Date Coni Dave APRN [address] [facility] [place] [address] [facility] - General 08/10/22
--- OUTSIDE RECORDS SUMMARY | 2025-03-02 10:53 | XMS_ITS | Patient Health Record ---
Author Organization [facility] Address [address] [place] [address] Care Team Providers Care Optometric Assistant Name Role Phone Dominic Boles Primary Care Provider McNerafia, Coni Unavailable [phone] Dominic Boles Unavailable Unavailable Migration, Provider Unavailable Unavailable Allergies Allergen (clinical drug ingredient) Drug/Non Drug Allergy documented on EMR Reaction Allergy Type Onset Date Status atorvastatin Lipitor muscle pain Drug Allergy Ac tive ezetimibe / simvastatin Vytorin muscle pain Drug Allergy Active Results Component Value Reference Range Notes COMPREHENSIVE METABOLIC PANE L (31029) Reviewed date:07/10/2024 09:14:35 AM Interpretation: Performing Lab:COL[facility], [facility] [address] [facility], [facility] [place] Korey Hillman Notes/Report: NON-FASTING; NON-FASTING; NON-FASTING; NON-FASTING; [...] Reviewed date:07/10/2024 09:14:35 AM Interpretation: Performing Lab:[facility], [place]CxdoDD[address] Korey Hillman Notes/Report: NON-FASTING PARATHYROID HORMONE, INTACT 86 16-77 pg/mL Interpretive Guide Intact PTH Calcium ------- Normal Parathyroid Normal Normal Hypoparathyroidism Low or Low Normal Low Hyperparathyroidism Primary Normal or High High Secondary High Normal or Low Tertiary High High Non-Parathyroid Hypercalcemia Low or Low Normal High CALCIUM 10.8 8.6-10.4 mg/dL VITAMIN D,25-OH,TOTAL,IA (17 306) Reviewed date:12/08/2024 11:10:07 AM Interpretation: Performing Lab:[facility] [address], [place]oscoCmlmWJ[address] Korey Hillman Notes/Report: NON-FASTING; NON-FASTING; NON-FASTING; NON-FASTING; NON-FAST FASTING:YES FASTING: YES VITAMIN D,25-OH,TOTAL,IA 50 30-100 ng/mL Vitamin D Status 25-OH Vitamin D: Deficiency: <20 ng/mL Insufficiency: 20 - 29 ng/mL Optimal: > or = 30 ng/mL For 25-OH Vitamin D testing on patients on D2-supplementation and patients for whom quantitation of D2 and D3 fractions is required, the QuestAssureD(TM) 25-OH VIT D, (D2,D3), LC/MS/MS is recommended: order code 64686 (patients >2yrs). See Note 1 Note 1 For additional information, please refer to http://education.Smart Furniture.Klevosti/faq/MXT264 (This link is being provided for informational/ educational purposes only.) TSH W/REFLEX TO FT4 (07393) Reviewed date:12/08/2024 11:10:07 AM Interpretation: Performing Lab:[facility] [address], [place] ZzroBW[address] Korey Hillman Notes/Report: NON-FASTING; NON-FASTING; NON-FASTING; NON-FASTING; NON-FAST FASTING:YES FASTING: YES TSH W/REFLEX TO FT4 3.10 0.40-4.50 mIU/L VITAMIN B12 (927) Reviewed date:12/08/2024 11:10:07 AM Interpretation: Performing Lab:[facility]T [facility] [address], [place] ZcxnBM[address] Korey Hillman Notes/Report: NON-FASTING; NON-FASTING; NON-FASTING; NON-FASTING; NON-FAST FASTING:YES FASTING: YES VITAMIN B12 >2000 200-1100 pg/mL HEMOGLOBIN A1c (496) Reviewed date:12/08/2024 11:10:07 AM Interpretation: Performing Lab:[facility]T [facility] [address], [place] ZdyhSQ[address] Korey Hillman Notes/Report: NON-FASTING; NON-FASTING; NON-FASTING; NON-FASTING; NON-FAST FASTING:YES FASTING: YES HEMOGLOBIN A1c 6.9 <5.7 % For someone without known diabetes, a hemoglobin [...] children. CBC (INCLUDES DIFF/PLT) (639 9) Reviewed date:12/08/2024 11:10:06 AM Interpretation: Performing Lab:COLT [facility] [address], [place] RhhdGH[address] Korey Hillman Notes/Report: NON-FASTING; NON-FASTING; NON-FASTING; NON-FASTING; NON-FAST FASTING:YES FASTING: YES WHITE BLOOD CELL COUNT 5.4 3.8-10.8 Thousand/ uL RED BLOOD CELL COUNT 4.41 3.80-5.10 Million/uL HEMOGLOBIN 12.0 11.7-15.5 g/dL HEMATOCRIT 40.1 35.0-45.0 % MCV 90.9 80.0-100.0 fL MCH 27.2 27.0-33.0 pg MCHC 29.9 32.0-36.0 g/dL For adults, a slight decrease in the calculated MCHC value (in the range of 30 to 32 g/dL) is most likely not clinically significant; however, it should be interpreted with caution in correlation with other red cell parameters and the patient's clinical condition. RDW 13.4 11.0-15.0 % PLATELET COUNT 153 140-400 Thousand/uL MPV 11.9 7.5-12.5 fL ABSOLUTE NEUTROPHILS 3548 2776-9430 cells/uL ABSOLUTE LYMPHOCYTES 6002 628-3969 cells/uL ABSOLUTE MONOCYTES 346 200-950 cells/uL ABSOLUTE EOSINOPHILS 81 15-500 cells/uL ABSOLUTE BASOPHILS 22 0-200 cells/uL NEUTROPHILS 65.7 LYMPHOCYTES 26.0 MONOCYTES 6.4 EOSINOPHILS 1.5 BASOPHILS 0.4 COMPREHENSIVE METABOLIC PANE L (28177) Reviewed date:12/08/2024 11:10:06 AM Interpretation: Performing Lab:CB, [facility] [address] [facility], [facility] [place]IwtrJI[address] Korey Hillman Notes/Report: NON-FASTING; NON-FASTING; NON-FASTING; NON-FASTING; NON-FAST FASTING:YES FASTING: YES GLUCOSE 115 65-99 mg/dL Fasting reference interval For someone without known diabetes, a glucose value between 100 and 125 mg/dL is consistent with prediabetes and should be confirmed with a follow-up test. UREA NITROGEN (BUN) 9 7-25 mg/dL CREATININE 0.81 0.60-0.95 mg/dL EGFR 72 > OR = 60 mL/min/1.73m2 BUN/CREATININE RATIO SEE NOTE: 6-22 (calc) Not Reported: BUN and Creatinine are within reference range. SODIUM 141 135-146 mmol/L POTASSIUM 4.3 3.5-5.3 mmol/L CHLORIDE 105 98-110 mmol/L CARBON DIOXIDE 29 20-32 mmol/L CALCIUM 11.2 8.6-10.4 mg/dL PROTEIN, TOTAL 7.4 6.1-8.1 g/dL ALBUMIN 4.4 3.6-5.1 g/dL GLOBULIN 3.0 1.9-3.7 g/dL (calc) ALBUMIN/GLOBULIN RATIO 1.5 1.0-2.5 (calc) BILIRUBIN, TOTAL 0.4 0.2-1.2 mg/dL ALKALINE PHOSPHATASE 76 37-153 U/L AST 21 10-35 U/L ALT 10 6-29 U/L LIPID PANEL, STANDARD (7600) Reviewed date:12/08/2024 11:10:06 AM Interpretation: Performing Lab:[facility] [address] [place] HospitalRkdwRI[address] Korey Hillman Notes/Report: NON-FASTING; NON-FASTING; NON-FASTING; NON-FASTING; NON-FAST FASTING:YES FASTING: YES CHOLESTEROL, TOTAL 160 <200 mg/dL HDL CHOLESTEROL 56 > OR = 50 mg/dL TRIGLYCERIDES 168 <150 mg/dL LDL-CHOLESTEROL 77 Reference range: <100 Desirable range <100 mg/dL for primary prevention; <70 mg/dL for patients with CHD or diabetic patients with > or = 2 CHD risk factors. LDL-C is now calculated using the Chan-Blane calculation, which is a validated novel method providing better accuracy than the Friedewald equation in the estimation of LDL-C. Chan SS et al. YVETTE. 2013;310(19): 8046-5886 (http://education.SubC Control.com/faq/KIS630) CHOL/HDLC RATIO 2.9 <5.0 (calc) NON HDL CHOLESTEROL 104 <130 mg/dL (calc) For patients with diabetes plus 1 major ASCVD risk factor, treating to a non-HDL-C goal of <100 mg/dL (LDL-C of <70 mg/dL) is considered a therapeutic option. X ray : Chest Reviewed date:11/06/2024 01:17:00 PM Interpretation: Performing Lab: Notes/Report: VITAMIN D,25-OH,TOTAL,IA (17 306) Reviewed date:04/14/2024 02:11:03 PM Interpretation: Performing Lab:[facility] [address], [place] TyvcMH[address] Korey Hillman Notes/Report: NON-FASTING; NON-FASTING; NON-FASTING; NON-FASTING; NON-FAST FASTING:YES FASTING: YES VITAMIN D,25-OH,TOTAL,IA 40 30-100 ng/mL Insufficiency: 20 - 29 ng/mL Optimal: > or = 30 ng/mL For 25-OH Vitamin D testing on patients on D2-supplementation and patients for whom quantitation of D2 and D3 fractions is required, the QuestAssureD(TM) 25-OH VIT D, (D2,D3), LC/MS/MS is recommended: order code 42633 (patients >2yrs). See Note 1 Note 1 For additional information, please refer to http://education.Acer/faq/WJZ242 (This link is being provided for informational/ educational purposes only.) Vitamin D Status 25-OH Vitamin D: Deficiency: <20 ng/mL TSH W/REFLEX TO FT4 (40235) Reviewed date:04/14/2024 02:11:03 PM Interpretation: Performing Lab:[facility] [address], [place] HospitalCofrSE[address] Korey Hillman Notes/Report: NON-FASTING; NON-FASTING; NON-FASTING; NON-FASTING; NON-FAST FASTING:YES FASTING: YES TSH W/REFLEX TO FT4 4.32 0.40-4.50 mIU/L VITAMIN B12 (927) Reviewed date:04/14/2024 02:11:03 PM Interpretation: Performing Lab:[facility], [place] HospitalHgtjKJ[address] Korey Hillman Notes/Report: NON-FASTING; NON-FASTING; NON-FASTING; NON-FASTING; NON-FAST FASTING:YES FASTING: YES VITAMIN B12 190 763-4785 pg/mL HEMOGLOBIN A1c (496) Reviewed date:04/14/2024 02:11:03 PM Interpretation: Performing Lab:[facility], [place] MeckNB[address] Korey Hillman Notes/Report: NON-FASTING; NON-FASTING; NON-FASTING; NON-FASTING; [...] 9) Reviewed date:04/14/2024 02:11:03 PM Interpretation: Performing Lab:[facility] [address] [facility], John CokerEknvZX[address] Korey Hillman Notes/Report: NON-FASTING; NON-FASTING; NON-FASTING; NON-FASTING; [...] MPV 12.1 7.5-12.5 fL ABSOLUTE NEUTROPHILS 2975 7476-6409 cells/uL ABSOLUTE LYMPHOCYTES 3486 072-1090 cells/uL ABSOLUTE MONOCYTES 310 200-950 cells/uL ABSOLUTE EOSINOPHILS 52 15-500 cells/uL ABSOLUTE BASOPHILS 19 0-200 cells/uL NEUTROPHILS 63.3 LYMPHOCYTES 28.6 MONOCYTES 6.6 EOSINOPHILS 1.1 BASOPHILS 0.4 LIPID PANEL, STANDARD (7600) Reviewed date:04/14/2024 02:11:03 PM Interpretation: Performing Lab:[facility] [address] [facility], [facility] RochesterNwqoXH[address] Korey Hillman Notes/Report: NON-FASTING; NON-FASTING; NON-FASTING; NON-FASTING; [...] LDL-C. Chan SS et al. YVETTE. 2013;310(19): 3637-7420 (http://education.SubC Control.Klevosti/faq/ZKB111) CHOL/HDLC RATIO 3.1 <5.0 (calc) NON HDL CHOLESTEROL 107 <130 mg/dL (calc) For patients with diabetes plus 1 major ASCVD risk factor, treating to a non-HDL-C goal of <100 mg/dL (LDL-C of <70 mg/dL) is considered a therapeutic option. VITAMIN D,25-OH,TOTAL,IA (51 571) Reviewed date:07/10/2024 09:14:35 AM Interpretation: Performing Lab:[facility] [address] [facility], [facility] HospitalTjcsMN[address] Korey Hillman Notes/Report: NON-FASTING; NON-FASTING; NON-FASTING; NON-FASTING; [...] D, (D2,D3), LC/MS/MS is recommended: order code 18616 (patients >2yrs). See Note 1 Note 1 For additional information, please refer to http://education.Acer/faq/OQS040 (This link is being provided for informational/ educational purposes only.) TSH (899) Reviewed date:07/10/2024 09:14:35 AM Interpretation: Performing Lab:COLT, [facility] [address], [place] DebiUN[address] Korey Hillman Notes/Report: NON-FASTING; NON-FASTING; NON-FASTING; NON-FASTING; NON-FAST TSH 3.57 0.40-4.50 mIU/L VITAMIN B12 (927) Reviewed date:07/10/2024 09:14:35 AM Interpretation: Performing Lab:[facility]T, [facility] [address], [place] LcmfTK[address] Korey Hillman Notes/Report: NON-FASTING; NON-FASTING; NON-FASTING; NON-FASTING; NON-FAST VITAMIN B12 593 323-7870 pg/mL HEMOGLOBIN A1c (496) Reviewed date:07/10/2024 09:14:35 AM Interpretation: Performing Lab:[facility] [address], [place] LjkxAY[address] Korey Hillman Notes/Report: NON-FASTING; NON-FASTING; NON-FASTING; NON-FASTING; [...] Reviewed date:07/10/2024 09:14:35 AM Interpretation: Performing Lab:COLT, [facility] [address], [place] JjcpSI[address] Korey Hillman Notes/Report: NON-FASTING; NON-FASTING; NON-FASTING; NON-FASTING; [...] MPV 11.6 7.5-12.5 fL ABSOLUTE NEUTROPHILS 3195 3374-1589 cells/uL ABSOLUTE LYMPHOCYTES 7003 048-0560 cells/uL ABSOLUTE MONOCYTES 461 200-950 cells/uL ABSOLUTE EOSINOPHILS 49 15-500 cells/uL ABSOLUTE BASOPHILS 20 0-200 cells/uL NEUTROPHILS 65.2 LYMPHOCYTES 24.0 MONOCYTES 9.4 EOSINOPHILS 1.0 BASOPHILS 0.4 Reason For Referral No Information Medications Medication SIG (Take, Route, Frequency, Duration) Notes Start Date End Date Status traZODone HCl 50 MG TAKE 1 TO 2 TABLETS BY MOUTH AT BEDTIME; Duration: 68 Active metFORMIN HCl ER 500 MG TAKE 1 TABLET BY MOUTH TWICE DAILY; Duration: 90 Active Losartan Potassium 50 MG 1 tab(s) orally once a day; Duration: 90 days Active Omeprazole 40 MG TAKE 1 CAPSULE BY [facility] ONCE DAILY; Duration: 90 Active Sertraline HCl 50 MG Take 1 tablet by [facility] once daily Orally Once a day; Duration: 30 days Active B-12 1000 MCG 1 tab(s) orally once a day Active Prolia 60 MG/ML as directed subcutan eously every 6 months Active Magnesium Oxide 400 MG 1 tab(s) orally o nce a day at bedtime; Duration: 90 Active Advil PRN Active Crestor 10 MG 1 tab(s) orally once a day(at bedtime); Duration: 90 days Active Diflucan 150 MG 1 tablet Orally once , repeat in 3 days; Duration: 3 days Active Vitamin D (Ergocalciferol) 1.25 MG (62180 UT) 1 cap(s) orally daily Active Fenofibrate 54 MG Take 1 tablet by reyna th once daily; Duration: 30 days Active Tylenol Extra Strength 500 MG 2 tab(s) orally Q6H prn Acti ve busPIRone HCl 5 MG 1 tablet Orally Twic e a day; Duration: 30 days 11/02/2024 Active ACCU-CHEK FRANCO METER 08/12/2016 Active SOFTCLIX LANCETS FOR DIABETIC TESTING ONCE DAILY; Duration: 30 DAYS 10/12/2017 Active Aspirin 81 MG 1 TAB(S) ORALLY ONCE A DAY; Duration: 30 DAY(S) Active ZyrTEC Allergy 10 MG 1 tab(s) orally onc e a day; Duration: 90 Active ACCU-CHEK FRANCO PLUS TEST STRIPS USE TO TEST BLOOD SUGAR ONCE DAILY; Duration: 90 DAYS 07/22/2017 Active Immunizations Vaccine Route Administration Date Status Comme nts SHINGRIX IM Intramuscular 09/24/2022 Administered SHINGRIX IM Intramuscular 01/28/2023 Administered Prevnar PCV-13 (Pneumococcal conjugate 13) IM Intramuscular 09/05/2019 Administered Pneumovax 23 IM Intramuscular 03/02/2018 Administered Influenza (Fluzone)--Medicare only IM Intramuscular 03/18/2015 Administered Influenza (Fluzone)--Medicare only IM Intramuscular 02/17/2016 Administered Influenza (Fluzone)--Medicare only IM Intramuscular 03/16/2017 Administered Fluzone High Dose IM Intramuscular 01/27/2018 Administered Fluzone High Dose IM Intramuscular 02/15/2019 Administered Fluzone High Dose IM Intramuscular 03/05/2020 Administered Fluzone High Dose IM Intramuscular 01/23/2021 Administered Fluzone High Dose IM Intramuscular 02/16/2023 Administered Fluzone High Dose IM Intramuscular 01/06/2024 Administered Covid Moderna Unknown 06/05/2020 Administered Covid Moderna Unknown 07/03/2020 Administered Arexvy IM Intramuscular 04/13/2024 Administered Problems Problem Type SNOMED Code ICD Code Onset Dates Problem Status W/U Status Risk Notes Problem Mixed hyperlipidemia (786426971) Mixed hyperlipidemia (E78.2) Active confirmed Problem Hypercalcemia (68943697) Hypercalcemia (E83.52) Active confirmed Problem Psychophysiologic insomnia (285625997) Psychophysiologic insomnia (F51.04) Active confirmed Problem Essential hypertension (23541898) Essential (primary) hypertension (I10) Active confirmed Problem Cervicalgia (47203682) Cervicalgia (M54.2) Active confirmed Problem Overactive bladder (822289285) Overactive bladder (N32.81) Active confirmed Problem Fatigue (71074876) Other fatigue (R53.83) Active confirmed Problem Mixed anxiety and depressive disorder (703660166) Depression with anxiety (F41.8) Active confirmed Problem Vitamin D deficiency (65105245) Vitamin D deficiency (E55.9) Active confirmed Problem Vitamin B12 deficiency (non anemic) (66268862) Vitamin B 12 deficiency (E53.8) Active confirmed Problem Gastroesophageal reflux disease (066597744) GERD without esophagitis (K21.9) Active confirmed Problem Restless legs (04298201) RLS (restless legs syndrome) (G25.81) Active confirmed Problem Body mass index 30.00 to 34.99 (016502780554947) BMI 34.0-34.9,adult (Z68.34) Active confirmed Problem Body mass index 30+ - obesity (758497916) BMI 30.0-30.9,adult (Z68.30) Active confirmed Problem Degeneration of lumbar intervertebral disc (14919722) Lumbar degenerative disc disease (M51.36) Active confirmed Problem Insomnia (893872235) Insomnia, unspecified type (G47.00) Active confirmed Problem Hyperlipidaemia (44583818) Hyperlipidemia, unspecified hyperlipidemia type (E78.5) Active confirmed Problem Type II diabetes mellitus without complication (276614331) Type 2 diabetes mellitus without complication, without long-term current use of insulin (E11.9) Active confirmed Problem Seasonal allergic rhinitis (829555060) Seasonal allergic rhinitis, unspecified allergic rhinitis trigger (J30.2) Active confirmed Problem Neuropathy due to type 2 diabetes mellitus (875017167787387) Type 2 diabetes, controlled, with neuropathy (E11.40) Active confirmed Problem Postmenopausal osteoporosis (957447361) Postmenopausal osteoporosis (M81.0) Active confirmed Vital Signs Heart Rate 84 /min 12/05/2024 Temperature 97.0 degrees Fahrenheit 12/05/2024 Blood pressure diastolic 86 mm Hg 12/05/2024 Height 64.5 in 12/05/2024 Blood pressure systolic 132 mm Hg 12/05/2024 Weight 170 lbs 12/05/2024 BMI 28.73 kg/m2 12/05/2024 Encounters Encounter Location Date Provider Diagnosis [facility] [address] [place] [address] 07/29/2024 Provider Migration Tooth abscess K04.7 [facility] P[facility] YE [address] [place] [address] 04/13/2024 Coni McNees Type 2 diabetes radha [...] osteoporosis M81.0 and Encounter for immunization Z23 [facility] [place] [address] [place] [address] 07/06/2024 Coni Leylaes Hyperlipidemia, unspecified hyperlipidemia type E78.5 ; Type [...] Postmenopausal osteoporosis M81.0 and Tooth abscess K04.7 [facility] P[facility] YE [address] [place] [address] 10/05/2024 Coni McNees Hyperlipidemia, unspecified hyperlipidemia type E78.5 ; Encounter [...] immunization Z23 and Vaginal yeast infection B37.31 [facility] YE [address] [place], [place] [address] 11/02/2024 Coni Jesusita Depression with anxi ety F41.8 ; Vaginal yeast infection B37.31 and Persistent cough R05.3 [facility] YE [address] [place], [place] [address] 12/05/2024 Coni Jesusita Hyperlipidemia, unspecified hyperlipidemia type E78.5 [...] D deficiency E55.9 ; Elevated TSH R79.89 and Postmenopausal osteoporosis M81.0 [facility] YE [address] [place], [place] [address] 07/06/2024 Coni McAies [facility] [address] [address] 08/18/2024 Coni McAies [facility] YE [address] [place] [address] 11/02/2024 Coni Mc Assessments Encounter Date Diagnosis (ICD Code) Assessment Notes Treatment Notes Treatment Clinical Notes Section Notes 04/13/2024 Hyperlipidemia, unspecified hyperlipidemia type (ICD-10 - [...] 11/02/2024 Depression with anxiety (ICD-10 - F41.8) Cont SSRI. Add buspar prn. Discussed rationale for pharmacotherapy, and discussed MOA of med. Discussed time course of expected improvements, and discussed side effect profile need for urgent evaluation if agitation or worsening mood occurs. Discussed need for f/u in office. RTC in 4 weeks or sooner prn 12/05/2024 Hyperlipidemia, unspecified hyperlipidemia type (ICD-10 - E78.5) Tolerating statin well. Will check fasting lipid panel and treat as indicated. 12/05/2024 Type 2 diabetes mellitus without complication, without long-term current use of insulin (ICD-10 - E11.9) Recommend to update eye exam, wear supportive footwear, monitor foot daily for lesions and follow diabetic diet. Will check a1c and treat as indicated 11/02/2024 Vaginal yeast infection (ICD-10 - B37.31) Keep clean and dry. Diflucan extended course as above 10/05/2024 Type 2 diabetes mellitus [...] low dose SSRI. No changes made today 04/13/2024 Essential (primary) hypertension (ICD-10 - I10) Blood pressure well controlled 07/06/2024 Essential (primary) hypertension (ICD-10 - I10) [...] prn 11/02/2024 Persistent cough (ICD-10 - R05.3) CXR unremarkable Likely reactive to cigarette smoke, recommend son to smoke outside. Will re-evaluate patient at FU in 4 weeks 12/05/2024 Depression with anxiety (ICD-10 - F41.8) Improved on current regimen. No changes made today 12/05/2024 Essential (primary) hypertension (ICD-10 - I10) Blood pressure at goal 07/06/2024 Seasonal allergic rhinitis, unspecified allergic rhinitis trigger (ICD-10 - J30.2) Well controlled 10/05/2024 Essential (primary) hypertension (ICD-10 - I10) Blood pressure at goal 04/13/2024 Seasonal allergic rhinitis, unspecified allergic rhinitis trigger (ICD-10 - J30.2) Well controlled 04/13/2024 Overactive bladder (ICD-10 - N32.81) At baseline on Gemtesa 07/06/2024 Overactive bladder (ICD-10 - N32.81) At baseline on Gemtesa 10/05/2024 Seasonal allergic rhinitis, unspecified allergic rhinitis trigger (ICD-10 - J30.2) Well controlled 12/05/2024 Seasonal allergic rhinitis, unspecified allergic rhinitis trigger (ICD-10 - J30.2) Well controlled 10/05/2024 Post-viral cough syndrome (ICD-10 - R05.8) Reassurance lung exam is normal. Dexamethasone IM. Discussed supportive care and return precautions. Will re-evaluate at FU in 4 weeks 12/05/2024 Overactive bladder (ICD-10 - N32.81) 04/13/2024 Psychophysiologic insomnia (ICD-10 - F51.04) At baseline on trazodone, no changes 07/06/2024 Psychophysiologic insomnia (ICD-10 - F51.04) At baseline on trazodone, no changes 04/13/2024 Vitamin B12 deficiency (ICD-10 - E53.8) Will check B12/CBC to confirm stabiity 07/06/2024 Vitamin B12 deficiency (ICD-10 - E53.8) Will check B12/CBC to confirm stabiity 10/05/2024 Cervicalgia (ICD-10 - M54.2) Rest, warm compresses,tylen ol prn, dex IM 12/05/2024 Psychophysiologic insomnia (ICD-10 - F51.04) At baseline on trazodone, no changes 12/05/2024 Vitamin B12 deficiency (ICD-10 - E53.8) Will check B12/CBC to confirm stabiity 10/05/2024 Overactive bladder (ICD-10 - N32.81) At [...] for parathyroid adenoma. Keep FU with nephrology 04/13/2024 Vitamin D deficiency (ICD-10 - E55.9) Will check vit d level and treat as indicated. 10/05/2024 Psychophysiologic insomnia (ICD-10 - F51.04) At baseline on trazodone, no changes 07/06/2024 Vitamin D deficiency (ICD-10 - E55.9) Will check vit d level and treat as indicated. 12/05/2024 Elevated parathyroid hormone (ICD-10 - R79.89) Continue vit d replacement. Reschedule FU with nephrology 12/05/2024 Vitamin D deficiency (ICD-10 - E55.9) Will check vit d level and treat as indicated. 07/06/2024 Elevated TSH (ICD-10 - R79.89) Will repeat and treat as indicated. 10/05/2024 Vitamin B12 deficiency (ICD-10 - E53.8) Will check B12/CBC to confirm stabiity 04/13/2024 Elevated TSH (ICD-10 - R79.89) Will repeat and treat as indicated. 04/13/2024 Postmenopausal osteoporosis (ICD-10 - M81.0) Cont vit d, prolia injections. 07/06/2024 Postmenopausal osteoporosis (ICD-10 - M81.0) Cont vit d, prolia injections. 12/05/2024 Elevated TSH (ICD-10 - R79.89) Will repeat and treat as indicated. 10/05/2024 Elevated parathyroid hormone (ICD-10 - R79.89) Continue vit d replacement. Reschedule FU with nephrology 10/05/2024 Vitamin D deficiency (ICD-10 - E55.9) Will check vit d level and treat as indicated. 12/05/2024 Postmenopausal osteoporosis (ICD-10 - M81.0) Cont vit d, prolia injections. 07/06/2024 Tooth abscess (ICD-1 0 - K04.7) Spoke with Dr. Anderson's office regarding unsure antibiotic dosing who reports patient was to receive a week of amox, not a one time dose. Given her swelling, was changed to Augmentin. Keep FU with oral surgeon next week. Sooner return precautions discussed. 07/29/2024 Tooth abscess (ICD-1 0 - K04.7) 04/13/2024 Encounter for immunization (ICD-10 - Z23) 10/05/2024 Elevated TSH (ICD-10 - R79.89) Will repeat and treat as indicated. 10/05/2024 Postmenopausal osteoporosis (ICD-10 - M81.0) Cont vit d, prolia injections. 10/05/2024 Encounter for immunization (ICD-10 - Z23) 10/05/2024 Vaginal yeast infection (ICD-10 - B37.31) Keep clean and dry. Diflucan as above Plan Of Treatment Pending Test Test Name Order Date Mammogram : Right Breast 12/27/2012 Mammogram : Right Breast 01/09/2014 Mammogram : Bilateral 01/31/2015 H-CMP 11/12/2016 H-LIPID PANEL 11/12/2016 H-HGBA1C 11/12/2016 H-HGBA1C 07/17/2016 H-HEPATITIS PROFILE (CHRONIC) 07/17/2016 C-CBC 07/14/2016 C-LIPID PANEL 07/14/2016 C-TSH 07/14/2016 M-Comprehensive Metabolic Panel 12/05/19 20 M-Hemoglobin A1C 12/05/2019 M-Lipid Panel 12/05/2019 M-Hepatitis Panel (4) 09/07/2019 Comprehensive Metabolic Panel (CMP) 12/26 TSH W/REFLEX TO FT4 ([id number]) 06/17/2023 Next Appt Details Provider Name:Coni Dave Anil Flanagan, 04/05/2025 10:30:00 AM, [address], [address], [place], [address], Insurance Providers Payer Name Payer Address Payer Phone Subscriber Number Group Number Insured Name Patient Relationship to Insured Coverage Start Date Coverage End Date MEDICARE [place] [address] [place] [place] [phone] [id number] Jessica Brown Self - patient is the insured [facility] [address] [place] [phone] [id number] Jessica Brown Self - patient is the [...]
--- NOTE | 2025-03-02 11:16 | NM_ITS ---
FINAL REPORT CLINICAL HISTORY: HYPERPARATHYROIDISM 11:00 am 20.3 [facility] Tc sestamibi injected into rt ant FINDINGS: PARATHYROID SCAN Procedure: The patient received a dose of 20.3 millicuries of technetium 99m sestamibi. Images over the neck were obtained initially and after a two-hour delay. Findings: No focal persistent localized abnormal activity on delayed imaging is identified to suggest an underlying parathyroid adenoma. Left thyroid lobe appears larger. IMPRESSION: No evidence of a parathyroid adenoma. Reviewed, Interpreted and Dictated by Franck Carver MD Transcribed by Grace Lugo Authenticated and [facility]
[2025-03-02] MEDS: ISO TC99M (SESTAMIBI);1 DOSE VIAL IV (11:22)
[2025-03-02] MEDS: SODIUM CHLORIDE 0.9% 10ML SYR (RAD ONLY) 10 ML IV (11:22)
== END 2025-03-02 23:59 | disposition home or self-care (01) ==
LOC: RAD 10:47
PROVIDERS: PCP Nurse Practitioner Family; Visit Provider Nurse Practitioner
DX: E21.3 Hyperparathyroidism, unspecified (principal)
CPT/HCPCS: 78071; A9500